=== PATIENT | female | born 1960 | race Caucasian/White ===

== ENCOUNTER 2018-07-20 10:51 | Emergency (ER) | payer OTHER ==
[~2018-07-20] VITALS: Ht 152.4 cm; Wt 69.4 kg
[2018-07-20] MEDS ORDERED: LISINOPRIL10 MG PO (11:03)
[2018-07-20] MEDS ORDERED: TRAZODONE HCL100 MG PO (11:03)
[2018-07-20] MEDS ORDERED: FLEXERIL PO (11:04)
[2018-07-20] MEDS ORDERED: GABAPENTIN 100100 MG PO (11:04)
[2018-07-20] MEDS ORDERED: CIPRO500 MG PO (11:05)
[2018-07-20 11:06] LABS: URINE BILIRUBIN NEGATIVE (Negative); URINE BLOOD NEGATIVE (Negative); URINE CLARITY CLEAR; URINE COLOR YELLOW; URINE GLUCOSE-RANDOM* NEGATIVE (Negative); URINE KETONES NEGATIVE (Negative); URINE LEUKOCYTES NEGATIVE (Negative); URINE NITRITE NEGATIVE (Negative); URINE PROTEIN (DIPSTICK) NEGATIVE (Negative); URINE UROBILINOGEN 0.2 E.U./dl (0.2-1.0)
[2018-07-20 13:40] LABS: HEMATOCRIT 38.5 % (37.0-47.0); MCH 34.8 pg (26.0-34.0); MCHC 33.9 g/dL (28.0-37.0); MCV 102.6 fL (80.0-100.0); RBC 3.75 mil/uL (4.20-5.00); RDW 13.2 % (10.5-14.5); WBC 9.2 thou/uL (4.0-11.0)
[2018-07-20 13:50] LABS: CREATININE 2.2 mg/dL (0.6-1.0)
[2018-07-20 13:52] LABS: POTASSIUM 6.2 mmol/L (3.5-5.1)
[2018-07-20 18:36] VITALS: BP 129/70
--- NOTE | 2018-07-21 08:14 | EKG ---
[address] [address] ELECTROCARDIOGRAM REPORT Name: ZHANG SILVA Room #: DEP Pia#: [id number] ������������������ Admission: 07/20/18 ������������������ Attend Phys: Discharge: 07/20/18 ������������������ Date of : 60 Report #: [id number] ����������������������������������������������������������������� [id number] THIS REPORT FOR: //name// [facility] ED Test Date: 2018-07-20 Test Time: 14:08:25 Pat Name: ZHANG SILVA Department: Room: Gender: F Manager Field Services: : 1960 Requested By: Lenora Salinas Order Number: [id number] MD: Adeel De Jesus Measurements Intervals [place] Rate: 90 P: 67 [place]: 172 QRS: 28 QRSD: 84 T: 45 QT: 382 QTc: 468 Interpretive Statements Sinus rhythm No significant abnormality No previous ECG available for comparison Electronically Signed On 07-21-2018 8:13:52 CDT by Adeel De Jesus [email or web address] ��������������������������������������������� <ELECTRONICALLY SIGNED> ���������������������������������������� By: Adeel De Jesus MD, [facility] ��������������������������������������������� 07/21/18 0813 1408 1408 Adeel De Jesus MD, FAC /EPI
--- NOTE | 2018-07-21 09:13 | EKG ---
[address] [place] [address] ELECTROCARDIOGRAM REPORT Name: ZHANG SILVA Room #: DEP Pia#: [id number] ������������������ Admission: 07/20/18 ������������������ Attend Phys: Discharge: 07/20/18 ������������������ Date of : 60 Report #: [id number] ����������������������������������������������������������������� [id number] THIS REPORT FOR: //name// [facility] ED Test Date: 2018-07-20 Test Time: 15:23:54 Pat Name: ZHANG SILVA Department: Room: Gender: F Svp Monetization: DORA : 1960 Requested By: Evan Cavazos Order Number: [id number] MD: Adeel De Jesus Measurements Intervals [place] Rate: 82 P: 69 [place]: 173 QRS: 24 QRSD: 80 T: 43 QT: 396 QTc: 463 Interpretive Statements Sinus rhythm Nonspecific T wave abnormality No previous ECG available for comparison Electronically Signed On 07-21-2018 9:13:19 CDT by Adeel De Jesus [email or web address] ��������������������������������������������� <ELECTRONICALLY SIGNED> ���������������������������������������� By: Adeel De Jesus MD, [facility] ��������������������������������������������� 07/21/18 0913 1523 1523 Adeel De Jesus MD, FACC /EPI
== END 2018-07-20 18:37 | disposition short-term general hospital (02) ==
LOC: ER 10:51
PROVIDERS: Emergency Medicine
DX: N17.9 Acute kidney failure, unspecified (principal); R33.9 Retention of urine, unspecified; E87.5 Hyperkalemia; F17.210 Nicotine dependence, cigarettes, uncomplicated

== ENCOUNTER 2019-06-10 20:08 | Emergency (ER) | payer OTHER ==
[~2019-06-10] VITALS: Ht 167.6 cm; Wt 72.6 kg
[~2019-06-10 20:08] MED LIST: CIPRO500 MG PO; FLEXERIL PO; GABAPENTIN 100100 MG PO; LISINOPRIL10 MG PO; TRAZODONE HCL100 MG PO
[2019-06-10 20:43] LABS: ABSOLUTE NEUTROPHILS 6.7 thou/uL (1.4-8.2); BASOPHILS 1.3 % (0.0-2.0); EOSINOPHILS 1.2 % (0.0-3.0); HEMATOCRIT 38.2 % (37.0-47.0); LYMPHOCYTES 28.5 % (24.0-44.0); MCH 35.7 pg (26.0-34.0); MCHC 33.9 g/dL (28.0-37.0); MCV 105.2 fL (80.0-100.0); MONOCYTES 7.1 % (1.0-8.0); PLATELET COUNT 173 thou/uL (150-400); POLYS 61.9 % (36.0-66.0); RBC 3.63 mil/uL (4.20-5.00); RDW 13.9 % (10.5-14.5); WBC 11.8 thou/uL (4.0-11.0)
[2019-06-10 20:50] LABS: CALCIUM 8.8 mg/dL (8.5-10.1); CREATININE 1.2 mg/dL (0.6-1.0); POTASSIUM 5.1 mmol/L (3.5-5.1)
[2019-06-10 20:56] LABS: ALBUMIN 3.7 g/dL (3.4-5.0); PROTIME 10.7 Seconds (9.3-11.4); TOTAL BILIRUBIN 0.4 mg/dL (<0.1-1.0); TOTAL PROTEIN 8.1 g/dL (6.4-8.2)
[2019-06-10 21:14] VITALS: BP 105/59
--- NOTE | 2019-06-11 08:36 | EKG ---
[facility] [place] [address] ELECTROCARDIOGRAM REPORT Name: ZHANG SILVA Room #: [facility]P [id number] Admission: 06/10/19 Attend Phys: Discharge: 06/10/19 Date of : 60 Report #: [id number] THIS REPORT FOR: cc: Brittni Esposito Pamela D. DO Lundgren, Craig H. MD [facility] THIS REPORT FOR: //name// [facility] ED Test Date: 2019-06-10 Test Time: 20:51:13 Pat Name: ZHANG SILVA Department: Room: Gender: F Soil Sampler: sandra lopez : 1960 Requested By: Raimundo Michaels Order Number: [id number] MD: Adeel De Jesus Measurements Intervals [place] Rate: 93 P: 53 [place]: 160 QRS: 18 QRSD: 88 T: 33 QT: 377 QTc: 469 Interpretive Statements Sinus rhythm Nonspecific T wave abnormality Compared to ECG 07/20/2018 15:23:54 No significant change was found Electronically Signed On 06-11-2019 8:34:47 CDT by Adeel De Jeuss [email or web address] <ELECTRONICALLY SIGNED> By: Adeel De Jesus MD, FAC 06/11/19 0834 50 50 Adeel De Jesus MD, [facility] /EPI
== END 2019-06-10 21:15 | disposition home or self-care (01) ==
LOC: ER 20:08
PROVIDERS: Emergency Medicine
DX: R11.10 Vomiting, unspecified (principal); F10.920 Alcohol use, unspecified with intoxication, uncomplicated; R05 Cough; R10.9 Unspecified abdominal pain; D18.01 Hemangioma of skin and subcutaneous tissue; F17.210 Nicotine dependence, cigarettes, uncomplicated; Z88.5 Allergy status to narcotic agent; Z88.8 Allergy status to other drugs, medicaments and biological substances

== ENCOUNTER 2020-06-22 17:08 | Inpatient (IN) | payer OTHER ==
[~2020-06-22] VITALS: Ht 167.6 cm; Wt 71.7 kg
[2020-06-22 17:10] VITALS: BP 171/73
[2020-06-22] MEDS ORDERED: ATENOLOL 25 MG25 M1 PO (17:13)
[2020-06-22] MEDS ORDERED: LISINOPRIL20 MG PO (17:13)
[2020-06-22] MEDS ORDERED: GABAPENTIN600 M1 PO (17:14)
[2020-06-22] MEDS ORDERED: TRAMADOL 50 MG50 MG PO (17:14)
[2020-06-22] MEDS ORDERED: TRAZODONE HCL100 MG PO (17:15)
[2020-06-22] MEDS ORDERED: PROZAC20 MG PO (17:15)
[2020-06-22] MEDS ORDERED: TAMSULOSIN HCL0.4 MG PO (17:15)
[2020-06-22] MEDS ORDERED: DICLOFENAC POTA50 MG PO (17:16)
[2020-06-22] MEDS ORDERED: FLEXERIL PO (17:16)
[2020-06-22 18:08] LABS: ABSOLUTE NEUTROPHILS 10.1 thou/uL (1.4-8.2); BASOPHILS 0.7 % (0.0-2.0); EOSINOPHILS 1.1 % (0.0-3.0); HEMATOCRIT 34.1 % (37.0-47.0); HEMOGLOBIN 11.6 gm/dL (12.0-15.0); LYMPHOCYTES 10.5 % (24.0-44.0); MCHC 34.1 g/dL (28.0-37.0); MCV 102.7 fL (80.0-100.0); MONOCYTES 6.6 % (1.0-8.0); PLATELET COUNT 208 thou/uL (150-400); POLYS 81.1 % (36.0-66.0); RBC 3.32 mil/uL (4.20-5.00); RDW 13.5 % (10.5-14.5); WBC 12.5 thou/uL (4.0-11.0)
[2020-06-22 18:16] LABS: CALCIUM 10.5 mg/dL (8.5-10.1); CREATININE 2.9 mg/dL (0.6-1.0); POTASSIUM 4.7 mmol/L (3.5-5.1)
[2020-06-22 18:22] LABS: ALBUMIN 2.9 g/dL (3.4-5.0); TOTAL BILIRUBIN 0.6 mg/dL (0.2-1.0); TOTAL PROTEIN 9.3 g/dL (6.4-8.2)
[2020-06-22 19:43] LABS: URINE BILIRUBIN NEGATIVE (Negative); URINE BLOOD 2+ (Negative); URINE CLARITY CLEAR; URINE COLOR YELLOW; URINE GLUCOSE-RANDOM* NEGATIVE (Negative); URINE KETONES NEGATIVE (Negative); URINE PROTEIN (DIPSTICK) NEGATIVE (Negative); URINE UROBILINOGEN 0.2 E.U./dl (0.2-1.0)
[2020-06-22 19:50] LABS: URINE LEUKOCYTES-REFLEX 2+ (Negative); URINE NITRITE-REFLEX POSITIVE (Negative)
[2020-06-22 20:03] LABS: CASTS None Seen /LPF (None Seen); SQUAMOUS 4-10 Moderate /LPF (0-3); URINE RBC 3-10 Few /HPF (0-2); URINE WBC-REFLEX 6-15 Few /HPF (0-5)
[2020-06-22 20:04] LABS: BACTERIA-REFLEX 1-9 Few /HPF (None Seen); CRYSTALS None Seen /LPF (None Seen)
[2020-06-22 21:58] VITALS: BP 170/73
[2020-06-22 22:14] VITALS: BP 131/60
[2020-06-22 22:47] VITALS: BP 152/82
--- NOTE | 2020-06-23 02:40 | NUR ---
PT admitted to room 457 at 2250. Martins cath patent draining malika urine. Pt initially c/o of pain right shoulder, left hip and bladder. Pain better after Flexiril and Tramadol. Pt alert and oriented, steady gait.
[2020-06-23 04:52] LABS: HEMOGLOBIN 10.7 gm/dL (12.0-15.0); MCH 34.7 pg (26.0-34.0); MCHC 33.6 g/dL (28.0-37.0); MCV 103.1 fL (80.0-100.0); RBC 3.1 mil/uL (4.20-5.00); RDW 13.3 % (10.5-14.5); WBC 8.5 thou/uL (4.0-11.0)
[2020-06-23 05:14] LABS: CALCIUM 9.3 mg/dL (8.5-10.1); CREATININE 2.7 mg/dL (0.6-1.0); POTASSIUM 4.7 mmol/L (3.5-5.1)
[2020-06-23 07:41] VITALS: BP 145/65
[2020-06-23 12:09] VITALS: BP 131/54
--- NOTE | 2020-06-23 13:48 | NUR ---
PT ADMITTED RELATED TO MICHEL, OBSTRUCTIVE UROPATHY, UTI. CM REVIEWED CHART AND SPOKE WITH CARE TEAM. CM MET WITH PT AT BEDSIDE THIS DAY. PT APPEARED TO BE A&O X4. CM ROLE INTRODUCED. PT INDICATED SHE LIVES IN A HOUSE HOUSE WITH HER FIANCE. SHE INICATED 4 STEPS TO ENTER AND 13 STEPS TO BASEMENT. 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 PT IS PATIENT PAY AND HAS BEEN ASSED BY [facility] IN THE PAST AND MAKES TOO MUCH TO QUALIFY FOR MEDICIAD. PT'S PCP IS DR. ROBERT EATON. PT HAS UROLOGY CONSULTED AND IS ON IV ROCEPHIN. CARE TEAM INDICATED THAT PT WILL LIKELY BE HERE OVER THE WEEKEND AND WILL DC HOME WITH A BRADLEY IN PLACE. CM FOLLOWING REGARDING DC PLANNING.
--- NOTE | 2020-06-23 19:17 | NUR ---
PT A&OX4, VSS, PAIN LEFT HIP AND BACK AND RIGHT SHOULDER. PATIENT STATED TRAMADOL DID NOT TOUCH HER PAIN. HYDROCODONE ORDERED AND PATIENT STATED IT MAKES HER ITCH, DOCTOR PAGED. PATIENT WALKS ONE ASSIST TO THE BATHROOM. PATIENT HAS BRADLEY CATH. NEW IV PLACED RIGHT FOREARM. NO SIGNS OF DISTRESS. WILL CONTINUE TO MONITOR.
[2020-06-24 07:12] VITALS: BP 120/64
--- NOTE | 2020-06-24 13:13 | NUR ---
Assumed pt care at 7am.Pt in and out of bed with sba.Assessment completed.vss. Pt c/o back pain radiating to left hip rated 7/10.Percocet tab given with partial relief.Dr Armstrong here,order noted.Pt c/o vaginal bleeding. Message sent to Dr Armstrong.Will be waiting for return call.
[2020-06-24 16:21] VITALS: BP 126/83
[2020-06-25 05:12] LABS: ALBUMIN 2.9 g/dL (3.4-5.0); CALCIUM 9.6 mg/dL (8.5-10.1); CREATININE 2.3 mg/dL (0.6-1.0); PHOSPHORUS 3.3 mg/dL (2.6-4.7); POTASSIUM 4.2 mmol/L (3.5-5.1)
[2020-06-25 09:27] VITALS: BP 156/81
[2020-06-25 16:42] VITALS: BP 164/80
--- NOTE | 2020-06-25 20:17 | NUR ---
Assumed pt care this am, VS stable. Pain is managed with medication, partial relief is noted. Accurate perio pad count ordered. FC in oplace draininmmg yellow urine with some sediments. POC followed with no signs of distress noted, endorsed to the night nurse.
--- NOTE | 2020-06-26 00:55 | NUR ---
ASSESSMENT COMPLETED. PT IS ALERT AND ORIENTED WELL VERY PLEASANT AND COOPEARTIVE. SHE WALKS AROUND IN ROOM WITH STEADY GAIT. BRADLEY TO D/D AND OBSERVED WITH LIGHT YELLOW U/O.AFEBRILE.OXYCODONE GIVEN FOR LLQ PAIN. PT HAS A LFA PIV IN PLACE, SHE DID NOT WANT IV FLUIDS RUNNING TONIGHT,SHE IS DRINKING WATER FINE. AFEBRILE.ROOM AIR WITH NO RESP DISTRESS.
[2020-06-26 06:08] LABS: HEMATOCRIT 34.6 % (37.0-47.0); HEMOGLOBIN 11.4 gm/dL (12.0-15.0); MCHC 33.1 g/dL (28.0-37.0); MCV 102.7 fL (80.0-100.0); RBC 3.37 mil/uL (4.20-5.00); RDW 13.2 % (10.5-14.5); WBC 15.5 thou/uL (4.0-11.0)
[2020-06-26 06:52] LABS: CALCIUM 9.2 mg/dL (8.5-10.1); CREATININE 1.9 mg/dL (0.6-1.0); PHOSPHORUS 3.7 mg/dL (2.5-4.9)
[2020-06-26 08:04] VITALS: BP 157/83
[2020-06-26] MEDS ORDERED: PERCOCET PO (09:50)
[2020-06-26] MEDS ORDERED: CEFUROXIME500 MG PO (09:50)
[2020-06-26 10:48] VITALS: BP 157/83
--- NOTE | 2020-06-26 11:37 | NUR ---
CARE TEAM INDICATED THAT PT IS MEDICALLY STABLE TO DC HOME THIS DAY TO SELF CARE. PT IS TO DC HOME WITH BRADLEY IN PLACE AND TO FOLLOW UP ON OP BASIS WITH UROLOGY. NO OTHER CM INTERVENTION INDICATED. CASE CLOSED.
--- NOTE | 2020-06-26 13:28 | NUR ---
Assumed pt care this am, VS stable. FC in place draining light yellow urine. No vaginal bleeding was noted.Steady on her feet and is able to ambulate in her rooom (standby assists). IV satrted leaking, IV removed. Seen by urology, den to sammy from their end to follow up with them 1 to 2 weeks and to keep FC in, bag replaced with a leg bag. Seen by , SAMMY instructions and prescriptions givne to the pt. Pt is now dc.
== END 2020-06-26 12:45 | disposition home or self-care (01) | DRG 690 ==
LOC: ER 17:08 → EROBS 21:29 → 4W 22:39
PROVIDERS: Nurse Practitioner Family; ADMIT Hospitalist; ATTEND Hospitalist
DX: N13.6 Pyonephrosis (principal); N17.9 Acute kidney failure, unspecified; M54.30 Sciatica, unspecified side; F32.9 Major depressive disorder, single episode, unspecified; F17.200 Nicotine dependence, unspecified, uncomplicated; F10.10 Alcohol abuse, uncomplicated; M25.552 Pain in left hip; I12.9 Hypertensive chronic kidney disease with stage 1 through stage 4 chronic kidney disease, or unspecified chronic kidney disease; N18.9 Chronic kidney disease, unspecified; N93.9 Abnormal uterine and vaginal bleeding, unspecified; B95.7 Other staphylococcus as the cause of diseases classified elsewhere; Z88.5 Allergy status to narcotic agent; Z88.8 Allergy status to other drugs, medicaments and biological substances
CPT/HCPCS: 10045; 10047

== ENCOUNTER 2020-06-27 22:26 | Inpatient (IN) | payer OTHER ==
[~2020-06-27] VITALS: Ht 167.6 cm; Wt 70.3 kg
[2020-06-27 22:26] VITALS: BP 93/42
[~2020-06-27 22:26] MED LIST changes: +ATENOLOL 25 MG25 M1 PO; +CEFUROXIME500 MG PO; +DICLOFENAC POTA50 MG PO; +GABAPENTIN600 M1 PO; +LISINOPRIL20 MG PO; +PERCOCET PO; +PROZAC20 MG PO; +TAMSULOSIN HCL0.4 MG PO; +TRAMADOL 50 MG50 MG PO
[2020-06-27 23:30] LABS: HEMATOCRIT 35.1 % (37.0-47.0); HEMOGLOBIN 11.7 gm/dL (12.0-15.0); MCH 34.3 pg (26.0-34.0); MCHC 33.4 g/dL (28.0-37.0); MCV 102.6 fL (80.0-100.0); PLATELET COUNT 241 thou/uL (150-400); RBC 3.42 mil/uL (4.20-5.00); RDW 13.2 % (10.5-14.5); WBC 17.1 thou/uL (4.0-11.0)
[2020-06-27 23:33] LABS: ANION GAP 13 mmol/L (7-16); BUN 68 mg/dL (7-18); CALCIUM 8.2 mg/dL (8.5-10.1); CHLORIDE 100 mmol/L (98-107); CO2 20 mmol/L (21-32); CREATININE 2.7 mg/dL (0.6-1.0); GLUCOSE 126 mg/dL (74-106); POTASSIUM 4.2 mmol/L (3.5-5.1); SODIUM 133 mmol/L (136-145)
[2020-06-27 23:40] VITALS: BP 109/66
[2020-06-27 23:43] LABS: ALBUMIN 2.8 g/dL (3.4-5.0); MAGNESIUM 1.9 mg/dL (1.8-2.4); SGOT 121 U/L (15-37); SGPT 134 U/L (30-65); TOTAL BILIRUBIN 0.5 mg/dL (0.2-1.0); TOTAL PROTEIN 8.1 g/dL (6.4-8.2); TROPONIN-I <0.06 ng/mL (<0.06)
[2020-06-28 00:17] LABS: MACROCYTES 1+
[2020-06-28 00:18] LABS: ANISOCYTOSIS 1+; PLATELET ESTIMATE NORMAL; POIKILOCYTOSIS 1+
[2020-06-28 01:06] LABS: URINE BILIRUBIN NEGATIVE (Negative); URINE BLOOD 3+ (Negative); URINE CLARITY CLOUDY; URINE COLOR YELLOW; URINE GLUCOSE-RANDOM* NEGATIVE (Negative); URINE KETONES TRACE (Negative); URINE NITRITE-REFLEX NEGATIVE (Negative); URINE PROTEIN (DIPSTICK) 1+ (Negative); URINE UROBILINOGEN 0.2 E.U./dl (0.2-1.0)
[2020-06-28 01:12] LABS: URINE LEUKOCYTES-REFLEX 3+ (Negative)
[2020-06-28 01:33] LABS: CASTS None Seen /LPF (None Seen); CRYSTALS None Seen /LPF (None Seen); MUCUS 0-3 Light strn/LPF (None Seen); SQUAMOUS 0-3 Few /LPF (0-3); URINE RBC >20 Many /HPF (0-2); URINE WBC-REFLEX >25 Many /HPF (0-5); WBC CLUMPS Few (None Seen)
[2020-06-28 01:34] LABS: YEAST-REFLEX Present (None Seen)
[2020-06-28 16:04] VITALS: BP 127/58
[2020-06-28 16:16] LABS: AMP/METHAMP Negative (Negative); BARBITURATES Negative (Negative); BENZODIAZEPINES Negative (Negative); COCAINE Negative (Negative); METHADONE Negative (Negative); OPIATES Negative (Negative); PCP Negative (Negative)
[2020-06-28 16:39] VITALS: BP 127/62
[2020-06-28 17:18] VITALS: BP 133/67
--- NOTE | 2020-06-28 18:39 | NUR ---
ASSUMED PT CARE UPON ADMISSION TO UNIT AT 1730. ADMISSION HISTORY AND EDUCATION COMPLETED. TO ENDORSE REST OF ADMISSION TO LABOR EXPEDITER NURSE. PATIENT A&OX4, HAS A BRADLEY CATHETER. INSTRUCTED ON HOW TO USE CALL LIGHT. ABLE TO MAKE NEEDS KNOWN. GAVE MEDS FOR PAIN ON EMAR. ON ROOM AIR. FALL PRECAUTIONS IN PLACE.
[2020-06-28 21:00] VITALS: BP 132/68
[2020-06-29] MEDS ORDERED: TRAMADOL 50 MG50 MG PO (00:25)
--- NOTE | 2020-06-29 04:30 | NUR ---
Admission assessments completed and careplan initiated. IVFluids infusing, good urine output. Afebrile. High fall risks, fall precautions in place. Calls out appropriately for needs. Up to BSC x 1 assist. Left Sciatica pain unrelieved with Tylenol. Orders received for Tramadol that offered better pain relief.
[2020-06-29 05:45] LABS: ABSOLUTE NEUTROPHILS 5.6 thou/uL (1.4-8.2); BASOPHILS 0.8 % (0.0-2.0); EOSINOPHILS 1.4 % (0.0-3.0); HEMATOCRIT 34.1 % (37.0-47.0); HEMOGLOBIN 11.4 gm/dL (12.0-15.0); LYMPHOCYTES 24.2 % (24.0-44.0); MCH 34.3 pg (26.0-34.0); MCHC 33.5 g/dL (28.0-37.0); MCV 102.3 fL (80.0-100.0); MONOCYTES 8.2 % (1.0-8.0); PLATELET COUNT 174 thou/uL (150-400); POLYS 65.4 % (36.0-66.0); RBC 3.34 mil/uL (4.20-5.00); WBC 8.6 thou/uL (4.0-11.0)
[2020-06-29 06:23] LABS: CALCIUM 7.6 mg/dL (8.5-10.1); CREATININE 1.5 mg/dL (0.6-1.0); MAGNESIUM 1.7 mg/dL (1.8-2.4); POTASSIUM 4.4 mmol/L (3.5-5.1)
[2020-06-29 08:00] VITALS: BP 137/57
--- NOTE | 2020-06-29 11:54 | NUR ---
ASSUMED PT CARE THIS AM. PT VSS, A&OX4. PATIENT ABLE TO MAKE NEEDS KNOWN WITH CALL LIGHT. BRADLEY CATHETER IN PLACE DRAINING WELL. PATIENT REPORTS NERVE PAIN WITH MOVEMENT. ON ROOM AIR. IV PATENT, FLUIDS INFUSING. TOOK MEDS WELL WITHOUT COMPLAINT. UP WITH ASSIST TO AMBUALTE. FALL PRECAUTIONS IN PLACE.
--- NOTE | 2020-06-29 11:55 | NUR ---
PT ADMITTED RELATED TO WEAKNESS AND UTI. CM REVIEWED CHART AND SPOKE WITH CARE TEAM. PT HAD DISCHARGED HOME FROM THIS FACILITY MON 06/26/20 WIHT A BR[address]LEY IN PLACE TO DO OP UROLOGY FOLLOW UP. CM MET WITH PT AT BEDSIDE THIS DAY. PT APPEARED TO BE A&O X4. CM ROLE INTRODUCED. PT INDICATED SHE LIVES IN A HOUSE HOUSE WITH HER FIANCE. SHE INICATED 4 STEPS TO ENTER AND 13 STEPS TO BASEMENT. 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 CHART INDICATES THAT SINCE LAST DC SHE HAD BEEN UNABLE TO WALK AND HAD FALLEN TWICE. 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 PT IS PATIENT PAY AND HAS BEEN ASSED BY [facility] IN THE PAST AND MAKES TOO MUCH TO QUALIFY FOR MEDICIAD. PT'S PCP IS DR. ROBERT EATON. PT HAS UROLOGY AND ID CONSULTED. CM FOLLOWING REGARDING DC PLANNING.
[2020-06-29] MEDS ORDERED: LEVOFLOXACIN250 MG PO (13:04)
[2020-06-29 13:25] LABS: ALBUMIN 2.6 g/dL (3.4-5.0); DIRECT BILIRUBIN 0.1 mg/dL (<0.1-0.2); TOTAL BILIRUBIN 0.5 mg/dL (0.2-1.0); TOTAL PROTEIN 7.5 g/dL (6.4-8.2)
[2020-06-29 16:45] VITALS: BP 146/73
[2020-06-29] MEDS ORDERED: DIFLUCAN100 MG PO (17:45)
[2020-06-29 18:18] VITALS: BP 146/73
== END 2020-06-29 19:01 | disposition home or self-care (01) | DRG 871 ==
LOC: ER 22:26 → EROBS 06-28 03:00 → 4W 06-28 16:50
PROVIDERS: Emergency Medicine; Nurse Practitioner; ADMIT Hospitalist; ATTEND Hospitalist
DX: A41.9 Sepsis, unspecified organism (principal); N17.0 Acute kidney failure with tubular necrosis; E87.1 Hypo-osmolality and hyponatremia; E87.2 Acidosis; F32.9 Major depressive disorder, single episode, unspecified; E86.0 Dehydration; N18.9 Chronic kidney disease, unspecified; I12.9 Hypertensive chronic kidney disease with stage 1 through stage 4 chronic kidney disease, or unspecified chronic kidney disease; F17.210 Nicotine dependence, cigarettes, uncomplicated; M54.30 Sciatica, unspecified side; Z66 Do not resuscitate; R33.8 Other retention of urine; Z88.6 Allergy status to analgesic agent; Z88.8 Allergy status to other drugs, medicaments and biological substances; T83.511D Infection and inflammatory reaction due to indwelling urethral catheter, subsequent encounter; Y83.8 Other surgical procedures as the cause of abnormal reaction of the patient, or of later complication, without mention of misadventure at the time of the procedure; Y92.89 Other specified places as the place of occurrence of the external cause
CPT/HCPCS: 10040

== ENCOUNTER 2020-12-12 07:31 | Inpatient (IN) | payer OTHER ==
[~2020-12-12] VITALS: Ht 167.6 cm; Wt 75.7 kg
[~2020-12-12 07:31] MED LIST changes: +DIFLUCAN100 MG PO; +LEVOFLOXACIN250 MG PO
[2020-12-12 07:34] VITALS: BP 106/45
[2020-12-12] MEDS ORDERED: FISH OIL 1,0001 EAC9 PO (08:35)
[2020-12-12] MEDS ORDERED: TUMERIC (08:35)
[2020-12-12] MEDS ORDERED: CALCIUM500 MG PO (08:36)
[2020-12-12 08:43] LABS: HEMATOCRIT 27.3 % (37.0-47.0); HEMOGLOBIN 8.8 gm/dL (12.0-15.0); MCH 34.2 pg (26.0-34.0); MCHC 32.1 g/dL (28.0-37.0); MCV 106.4 fL (80.0-100.0); PLATELET COUNT 134 thou/uL (150-400); RBC 2.57 mil/uL (4.20-5.00); RDW 15.6 % (10.5-14.5); WBC 28.8 thou/uL (4.0-11.0)
[2020-12-12 08:56] LABS: URINE BILIRUBIN NEGATIVE (Negative); URINE BLOOD TRACE (Negative); URINE CLARITY CLEAR; URINE COLOR YELLOW; URINE GLUCOSE-RANDOM* NEGATIVE (Negative); URINE KETONES NEGATIVE (Negative); URINE PROTEIN (DIPSTICK) NEGATIVE (Negative); URINE UROBILINOGEN 0.2 E.U./dl (0.2-1.0)
[2020-12-12 08:58] LABS: URINE LEUKOCYTES-REFLEX 2+ (Negative); URINE NITRITE-REFLEX POSITIVE (Negative)
[2020-12-12 08:58] LABS: CREATININE 2.1 mg/dL (0.6-1.0); POTASSIUM 5.9 mmol/L (3.5-5.1)
[2020-12-12 09:04] LABS: CALCIUM 8.6 mg/dL (8.5-10.1)
[2020-12-12 09:08] LABS: AMORPHOUS URATES Moderate /LPF (None Seen); CASTS None Seen /LPF (None Seen); SQUAMOUS 4-10 Moderate /LPF (0-3); URINE RBC 1-2 Rare /HPF (NONE SEEN)
[2020-12-12 10:25] LABS: ABSOLUTE NEUTROPHILS 23.9 thou/uL (1.4-8.2); METAMYELOCYTES 1 %; PLATELET ESTIMATE NORMAL
[2020-12-12 13:31] VITALS: BP 120/55
[2020-12-12 14:09] VITALS: BP 127/51
[2020-12-12 14:15] VITALS: BP 134/67
[2020-12-12] MEDS ORDERED: PROAIR HFA8.5 GM INH (15:41)
[2020-12-12] MEDS ORDERED: DICLOFENAC POTA50 MG PO (15:43)
--- NOTE | 2020-12-12 15:54 | EKG ---
[address] [place] [address] ELECTROCARDIOGRAM REPORT Name: ZHANG SILVA Room #: 358-P ADM IN M.R.#: [id number] Admission: 12/12/20 Attend Phys: Fabienne Her MD Discharge: Date of : 60 Report #: [id number] [facility] ED Test Date: 2020-12-12 Test Time: 08:00:46 Pat Name: ZHANG SILVA Department: Room: 358 Gender: F Hardness Tester: Curt COVARRUBIAS : 1960 Requested By: Tono Salazar Order Number: [id number] MD: Kong Johnston Measurements Intervals [place] Rate: 69 P: 51 [place]: 167 QRS: 17 QRSD: 85 T: 8 QT: 438 QTc: 470 Interpretive Statements Sinus rhythm Nonspecific T abnormalities, diffuse leads Compared to ECG 06/10/2019 20:51:13 No significant changes Electronically Signed On 12-12-2020 15:54:31 CDT by Kong Johnston [email or web address] <ELECTRONICALLY SIGNED> By: Kong Johnston MD, [facility] 12/12/20 1554 0800 9 Kong Johnston MD, FACC /EPI
[2020-12-12 16:27] LABS: % SATURATION 3 % (20-39); IRON 13 ug/dL (50-170); TIBC 441 ug/dL (250-450)
[2020-12-12 16:32] LABS: FOLIC ACID 2.9 ng/mL (8.6-58.9)
--- NOTE | 2020-12-12 18:18 | NUR ---
ADMIT: PT ARRIVED TO UNIT, A&OX4, AMBULATE STEADY. PT HAS BRADLEY IN PLACE, NEW BAG PROVIDED. SCD IN PLACE. HEATING PAD DELIVERED PER PT REQUEST. PT STATES SHE IS NOT CURRENTLY IN PAIN, BUT WILL BE IF HER MEDICATIONS ARE NOT GIVEN TONIGHT OR TOMORROW MORNING. MEDS RECONCILLED. SUPPOSITORY ADMINISTERED, STOOL COLLECTED FOR OCCULT BLOOD. NO OTHER QUESTIONS OR CONCERNS AT THIS TIME.
[2020-12-12 19:41] VITALS: BP 150/56
[2020-12-13] VITALS (7 sets, daily range): BP systolic 113–183; BP diastolic 56–92
[2020-12-13 05:40] LABS: HEMATOCRIT 24.1 % (37.0-47.0); HEMOGLOBIN 7.9 gm/dL (12.0-15.0); MCH 34.2 pg (26.0-34.0); MCHC 32.6 g/dL (28.0-37.0); MCV 104.8 fL (80.0-100.0); PLATELET COUNT 125 thou/uL (150-400); RDW 15.5 % (10.5-14.5); WBC 21.1 thou/uL (4.0-11.0)
[2020-12-13 06:13] LABS: ALBUMIN 2.5 g/dL (3.4-5.0); CALCIUM 8.2 mg/dL (8.5-10.1); CREATININE 1.8 mg/dL (0.6-1.0); MAGNESIUM 1.9 mg/dL (1.8-2.4); TOTAL BILIRUBIN 0.5 mg/dL (0.2-1.0)
[2020-12-13 06:31] LABS: POTASSIUM 5.2 mmol/L (3.5-5.1)
[2020-12-13 11:49] LABS: ABSOLUTE NEUTROPHILS 20.7 thou/uL (1.4-8.2); MACROCYTES 1+
[2020-12-13 13:16] LABS: % SATURATION 3 % (20-39); IRON 13 ug/dL (50-170); TIBC 374 ug/dL (250-450)
[2020-12-13 13:32] LABS: ABSOLUTE RETIC COUNT 0.0554 10^6/uL; OBSERVED RETIC COUNT 2.4 % (0.6-2.6)
[2020-12-13 13:43] LABS: FOLIC ACID 2.3 ng/mL (8.6-58.9)
--- NOTE | 2020-12-13 18:36 | NUR ---
RN ASSUMED PT'S CARE AT 0700AM, PT IS A&OX4, PT IS CONTINUING IV ABX AND IV FLUID, PT'S R SIDE FACIAL CELLULITIS AND PAIN HAVE IMPROVED, PT'S BRADLEY CATHETER HAS CHANGED ( 14FR, 10ML ,COUDE CATH ) TODAY PER ORDER, NEW BRADLEY CATHETER IS WORKING WELL , NO BLOOD IN URINE, PT HAS GI CONSULT DUE TO PT HAS BLOOD STOOL AT HOME, AND LOW HGB, PT IS GOING TO HAVE EGD AND COLONOSCOPY TOMORROW, PT HAS SIGNED CONSENT AND PT STARTS TAKING MEDICATION FOR COLONOSCOPY AT 1730PM, RN WILL NPO AFTER MN.
[2020-12-14 03:25] VITALS: BP 178/84
--- NOTE | 2020-12-14 06:29 | NUR ---
PT PROGRESSING SLOWLY TOWARDS D/C GOALS. SHE HAS BEEN MPO AFTER MN FOR EGD AND COLONOSCOPY. HER STOOL IS LIGHT BROWN YELLOW LIQUID STOOL. BRADLEY HAD LG AMTS CLEAR YELLOW URINE. BP MODERATELY ELEVATED. HYDRALAZINE GIVEN ORDERED. BP DOWN TO WNL . PT C/O ARTHRITIC PAIN. NOTIFIED DRYWALL HANGER FRAMER . HELD TYLENOL AND FLEXORIL ORDERED FOR PROCEDURES. ENCOURAGED PT TO REPOSITION. BED DOWN CALL LIGHT IN REACH.
[2020-12-14 07:07] VITALS: BP 176/87
[2020-12-14 11:19] VITALS: BP 183/99
[2020-12-14 15:48] VITALS: BP 183/81
--- NOTE | 2020-12-14 16:02 | NUR ---
INITIAL ASSESSMENT: Received consult. SW reviewed chart and spoke with nursing and attending physician. Pt was admitted from home due to facial cellulitis. Pt is on IV abx and IV steroids. GI consulted due to anemia/melena. Pt to have EGD/colonoscopy today. Pt off the unit during SW visit. Per chart, pt is alert/orientated x 4. Pt lives at home. Pt with hx urinary retention and has a escamilla catheter. Pt does not have health insurance. [facility] to screen pt and assist with Medicaid application if appropriate. Pt to stay in the hospital for IV abx. SW is following to assist as needed with discharge planning.
[2020-12-14 16:07] LABS: HEMATOCRIT 26.8 % (37.0-47.0); HEMOGLOBIN 8.6 gm/dL (12.0-15.0); MCH 33.5 pg (26.0-34.0); MCHC 32.2 g/dL (28.0-37.0); MCV 103.9 fL (80.0-100.0); RBC 2.58 mil/uL (4.20-5.00); RDW 15.8 % (10.5-14.5); WBC 15.2 thou/uL (4.0-11.0)
[2020-12-14 16:19] LABS: CALCIUM 8.4 mg/dL (8.5-10.1); CREATININE 1.4 mg/dL (0.6-1.0)
--- NOTE | 2020-12-14 18:13 | NUR ---
ASSUMED PATIENT CARE AT 0700. A/O X4. TOLERATED EGD AND COLONOSCOPY. ELEVATED BP. RIGHT LOWER FACE HAS DRAINAGE, ABD APPLIED. VSS. AFEBRILE. SLOWLY TWARDS POC GOALS.
[2020-12-14 19:30] VITALS: BP 148/80
--- NOTE | 2020-12-15 04:12 | NUR ---
PROGRESS PT A/O X4.LUNGS CLEAR ON ROOM AIR. BRADLEY CATH IN PLACE DRAING YELLOW CLOUDY URINE. IV TO LF INFUSING NS @100CC'S/HR. DENIES PAIN. ANTIBIOTICS ADMINISTERED ORDERED. PT STATED SHE WANTS TO DC HOME ON ORAL ANTIBIOTICS TOMORROW SHE HAS NO INSURANCE AND IS CONCERNED ABOUT HER BILL. CHIN DRAINAGE WAS CULTURED BY DR. ROONEY AND BROUGHT TO LAB GAUZE DRESSING APPLIED. CONTINUE POC.
[2020-12-15 04:30] VITALS: BP 140/77
[2020-12-15 05:55] LABS: HEMATOCRIT 26.5 % (37.0-47.0); HEMOGLOBIN 8.8 gm/dL (12.0-15.0); MCH 34.2 pg (26.0-34.0); MCHC 33.1 g/dL (28.0-37.0); MCV 103.3 fL (80.0-100.0); PLATELET COUNT 166 thou/uL (150-400); RBC 2.57 mil/uL (4.20-5.00); RDW 15.3 % (10.5-14.5); WBC 11.7 thou/uL (4.0-11.0)
[2020-12-15 06:38] LABS: ALBUMIN 2.6 g/dL (3.4-5.0); CALCIUM 8.1 mg/dL (8.5-10.1); CREATININE 1.4 mg/dL (0.6-1.0); POTASSIUM 3.9 mmol/L (3.5-5.1); TOTAL BILIRUBIN 0.6 mg/dL (0.2-1.0); TOTAL PROTEIN 7.2 g/dL (6.4-8.2)
[2020-12-15 07:40] VITALS: BP 166/86
[2020-12-15 11:11] LABS: ABSOLUTE NEUTROPHILS 9.7 thou/uL (1.4-8.2); METAMYELOCYTES 2 %
[2020-12-15 11:12] LABS: ANISOCYTOSIS 1+
[2020-12-15 11:31] VITALS: BP 136/68
--- NOTE | 2020-12-15 15:05 | NUR ---
PT IS ALERT AND ORIENTED X4. SA ON THE MONITOR. PT IS ON ROOM AIR. PT HAD EPISODE THIS AM WHEN GETTING OUT OF BED AND FELT LIGHTHEADED AND DIZZY. BLOOD PRESSURE WAS STABLE. BP WAS ELEVATED THIS AM AND PRN HYDRALAZINE GIVEN FOR BP. DR. RUSH STARTED PT ON NORVASC. CHANGED DRESSING TO CHIN ABSCESS. DR. ROONEY AT BEDSIDE AND WANTING ENT TO LOOK AT THE ABSCESS THERE IS DRAINAGE IN HER MOUTH. PAGED ENT. SPOKE WITH DR. BANEGAS AND WILL ADDRESS ABSCESS. PT GIVEN PRN ATIVAN FOR ANXIETY PER REQUEST. NO COMPLAINTS OF PAIN OR DISCOMFORT AT THIS TIME. WILL CONTINUE TO MONITOR.
--- NOTE | 2020-12-15 15:39 | NUR ---
SW reviewed chart and spoke with nursing and attending physician. Pt remains on IV abx. Pt had EGD and colonoscopy yesterday. ENT to see pt for possible I&D of facial cellulitis. Awaiting cultures for recommendation for abx at time of discharge. YOBANY met with pt at bedside. Introduced role of SW. Pt is alert/orientated x 4. Pt reports she lives at home with her fiance. Prior to admission, pt was independent with ADLs. No use of DME. Pt's PCP is Dr. Brittni Esposito in [place]. 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 Pt does not have health insurance. Pt states she is over assets to qualify for Medicaid. Discharge home is anticipated for tomorrow. Pt denies having any discharge needs. SW is following and available to assist should needs arise.
[2020-12-15 15:43] VITALS: BP 151/81
[2020-12-15 19:30] VITALS: BP 156/71
[2020-12-16 04:00] VITALS: BP 169/82
[2020-12-16 04:33] LABS: HEMATOCRIT 27.4 % (37.0-47.0); HEMOGLOBIN 9.2 gm/dL (12.0-15.0); MCH 34.6 pg (26.0-34.0); MCHC 33.4 g/dL (28.0-37.0); MCV 103.5 fL (80.0-100.0); RBC 2.64 mil/uL (4.20-5.00); WBC 8.8 thou/uL (4.0-11.0)
--- NOTE | 2020-12-16 06:30 | NUR ---
BRADLEY IN PLACE TO DD. POC WITH IVPB ANTIBIOTICS GIVEN. VANCO TROUGH THIS AFTERNOON DUE. ANAEROBIC SWAB CULTURE TAKEN TO LAB. PREVIOUS SWAB WAS INCORRECT SWAB SUBMITTED FOR CULTURE WAS FOR MRSA. VSS OVERNIGHT.
[2020-12-16 07:12] VITALS: BP 119/56
[2020-12-16 15:24] VITALS: BP 107/53
--- NOTE | 2020-12-16 15:56 | NUR ---
PT IS ALERT AND ORIENTED X4. CURRENTLY ROOM AIR. CHANGED DRESSING TO CHIN ABSCESS X2 THIS SHIFT. PURULENT DRAINAGE. PER DR. ROONYE, MILK ABSCESS TO CLEAN DRAINAGE FROM INSIDE LIP WITH SWAB AND MOUTH WASH, AND CHIN WITH SALINE. MILKED MODERATE AMOUNT OF PURULENT DRAINAGE FROM ABSCESS. DR. ROONEY ADDRESS CRITICAL VANC LEVEL. STOPPED VANCOMYCIN AFTER 130ML ADMINISTERED. PT WAS DOING EXERCISES ON THE SIDE OF THE BED AND STARTED TO HAVE SOME PAIN ON HER LEFT SIDE. GAVE PRN TYLENOL AND PAIN WAS RELIEVED. NO OTHER PAIN OR DISCOMFORT AT THIS TIME. WILL CONTINUE TO MONITOR.
[2020-12-16 20:05] VITALS: BP 133/64
--- NOTE | 2020-12-16 23:25 | NUR ---
PT ALERT AND ORIENTED X4. VSS AFEBRILE. C/O BACK AND LEFTHIP PAIN. MEDICATED WITH 2 TYLENOL. ATIVAN GIVEN FOR ANXIETY. TRAZADONE FOR SLEEP. WOUND CARE COMPLETED ORDERED. MODERATE AMTS OF PURULENT DRAINAGE NOTED FROM ORAL AND FACIAL CHIN WOUND. ABX OINTMENT APPLIED ORDERED. BED DOWN. CALL LIGHT IN REACH. NO S/S RESPIRATORY DISTRESS. 99% SAT ON RA.
[2020-12-17 04:30] VITALS: BP 119/58
--- NOTE | 2020-12-17 07:33 | NUR ---
PT PROGRESSING SLOWLY TOWARDS D/C GOALS. VSS AFEBRILE. DRAINED WOUNDS ORDERED. DRAINAGE IS STILL PURULENT IN MOD AMTS. ABX OINTMENT APPLIED ORDERED. PT SLEPT MOST OF NIGHT. NO S/S DISTRESS ON RA.
--- NOTE | 2020-12-17 07:46 | NUR ---
PT RESTNG QUIETLY THIA AM. PROGRESSING TOWARDS D/C GOALS. VSS AFEBRILE. DRAINING WOUNDS ORDERED. ABX OINTMENT APPLIED ORDERED.
[2020-12-17] MEDS ORDERED: LINEZOLID600 MG PO (10:52)
[2020-12-17] MEDS ORDERED: NORVASC5 MG PO (10:53)
[2020-12-17] MEDS ORDERED: PROZAC20 MG PO (10:54)
[2020-12-17] MEDS ORDERED: MUPIROCIN22 GM TOP (10:55)
[2020-12-17] MEDS ORDERED: FOLIC ACID1 MG PO (10:55)
[2020-12-17 11:50] VITALS: BP 142/65
--- NOTE | 2020-12-17 12:25 | NUR ---
PT IS ALERT AND ORIENTED X4. PT DISCHARGING PHONE WITH FIANCE DRIVING. PT VERIFIED THAT ANTIBIOTIC IS AFFORDABLE WITH GOOD RX CODE. EDUCATED PT REGARDING HOW TO MILK ABSCESS AND TREATMENT. PT VERBALIZED UNDERSTANDING OF DISCHARGE INSTRUCTIONS AND FOLLOW UP. PT LEFT IN WHEELCHAIR VIA NURSING STAFF.
--- NOTE | 2020-12-20 10:08 | PATH ---
[facility] [address] [place] [address] PATHOLOGY RPT PROCEDURE Name: LUIS ANGEL SILVA Room #: 358-P DIS IN M.R.#: [id number] Admission: 12/12/20 Date of : 60 Discharge: 12/17/20 Report #: [id number] Path Case #: [id number] LCA Accession Number: [id number] . 01 Material submitted: . PART A: gastrointestinal site - RANDOM GASTRIC BIOPSY R/O H. PYLORI PART B: colon - DESCENDING COLON POLYP. Modifiers: descending . 01 Clinical history: . ESOPHAGOGASTRODUODENOSCOPY/COLONOSCOPY MELENA, ANEMIA, COLON POLYPS, GASTRITIS SEPSIS, UTI, FACIAL CELLULITIS . 02 Diagnosis: A. Gastric mucosa, random gastric, biopsy: - Focal mild active chronic gastritis. - H. pylori immunohistochemical stain is negative. . B. Colonic mucosa, descending colon polyp, biopsy: - Colonic mucosa with hyperplastic changes. - Negative for dysplasia or malignancy. . (PANTERA:delma; 12/18/2020) [facility] 12/18/2020 1114 Local . 02 Electronically signed: . Dougie Cason DO, Pathologist NPI- [id number] . 01 Gross description: . A. The specimen is received in formalin, labeled "Luis Angel Silva, random gastric biopsy". Received are 3 segments of pale joseph tissue ranging in size from 0.4 to 0.5 cm in maximum dimensions. The specimen is submitted entirely in cassette A1. . B. The specimen is received in formalin, labeled "Luis Angel Silva, descending colon polyp". Received is a segment of pale joseph tissue measuring 0.5 cm in maximum dimensions. The specimen is submitted entirely in cassette B1.([facility]; 12/15/2020) [facility] 12/15/2020 1254 Local . 02 Pathologist provided ICD-10: K29.50, K92.1, D64.9 . 02 CPT . 443515, 201555 Specimen Comment: A courtesy copy of this report has been sent to [phone], [place] [address] PATHOLOGY RPT PROCEDURE Name: LUIS ANGEL SILVA Room #: 358-P DIS IN M.R.#: [id number] Admission: 12/12/20 Date of : 60 Discharge: 12/17/20 Report #: [id number] Path Case #: [id number] Specimen Comment: [id number], Specimen Comment: Report sent to , DR EATON / DR RUSH Specimen Comment: A duplicate report has been generated due to demographic updates. Performed at: 01 [facility] [address] [id number] MD Ino Whipple MD Phone: [phone] Performed at: [address] [id number] MD Alberto Ramirez MD Phone: [phone]
== END 2020-12-17 12:15 | disposition home or self-care (01) | DRG 871 ==
LOC: ER 07:31 → EROBS 13:18 → 3W 14:09
PROVIDERS: Nurse Practitioner; Specialist; Student in an Organized Health Care Education/Training Program; ADMIT Hospitalist; ATTEND Hospitalist
PROC: 0DBM8ZZ Excision of Descending Colon, Via Natural or Artificial Opening Endoscopic (ICD-10-PCS; principal; 2020-12-14)
PROC: 0DB68ZX Excision of Stomach, Via Natural or Artificial Opening Endoscopic, Diagnostic (ICD-10-PCS; principal; 2020-12-14)
DX: A41.9 Sepsis, unspecified organism (principal); K29.71 Gastritis, unspecified, with bleeding; K57.31 Diverticulosis of large intestine without perforation or abscess with bleeding; L03.211 Cellulitis of face; N17.9 Acute kidney failure, unspecified; L02.01 Cutaneous abscess of face; F32.9 Major depressive disorder, single episode, unspecified; I12.9 Hypertensive chronic kidney disease with stage 1 through stage 4 chronic kidney disease, or unspecified chronic kidney disease; N18.9 Chronic kidney disease, unspecified; F17.210 Nicotine dependence, cigarettes, uncomplicated; D64.9 Anemia, unspecified; E87.5 Hyperkalemia; M54.30 Sciatica, unspecified side; Z66 Do not resuscitate; E11.22 Type 2 diabetes mellitus with diabetic chronic kidney disease; R33.9 Retention of urine, unspecified; R31.29 Other microscopic hematuria; N30.91 Cystitis, unspecified with hematuria; B96.1 Klebsiella pneumoniae [K. pneumoniae] as the cause of diseases classified elsewhere; F10.10 Alcohol abuse, uncomplicated; Z20.822 Contact with and (suspected) exposure to COVID-19; E53.8 Deficiency of other specified B group vitamins; K44.9 Diaphragmatic hernia without obstruction or gangrene; K63.5 Polyp of colon; K64.8 Other hemorrhoids; Z88.6 Allergy status to analgesic agent; Z88.8 Allergy status to other drugs, medicaments and biological substances; Z28.21 Immunization not carried out because of patient refusal
CPT/HCPCS: 10879; 62110; 62900; 70005

== ENCOUNTER 2021-01-09 13:57 | Inpatient (IN) | payer OTHER ==
[~2021-01-09] VITALS: Ht 167.6 cm; Wt 74.4 kg
[~2021-01-09 13:57] MED LIST changes: +CALCIUM500 MG PO; +FISH OIL 1,0001 EAC9 PO; +FOLIC ACID1 MG PO; +LINEZOLID600 MG PO; +MUPIROCIN22 GM TOP; +NORVASC5 MG PO; +PROAIR HFA8.5 GM INH; +TUMERIC
[2021-01-09 14:39] VITALS: BP 112/27
[2021-01-09 15:08] LABS: URINE BILIRUBIN NEGATIVE (Negative); URINE BLOOD 2+ (Negative); URINE CLARITY SL CLOUDY; URINE COLOR YELLOW; URINE GLUCOSE-RANDOM* NEGATIVE (Negative); URINE KETONES NEGATIVE (Negative); URINE LEUKOCYTES-REFLEX 1+ (Negative); URINE NITRITE-REFLEX NEGATIVE (Negative); URINE PROTEIN (DIPSTICK) NEGATIVE (Negative); URINE UROBILINOGEN 0.2 E.U./dl (0.2-1.0)
[2021-01-09 15:19] LABS: SQUAMOUS 0-3 Few /LPF (0-3); URINE RBC 3-10 Few /HPF (NONE SEEN); URINE WBC-REFLEX 6-15 Few /HPF (0-5)
[2021-01-09 15:20] LABS: AMORPHOUS URATES Moderate /LPF (None Seen); YEAST-REFLEX Present (None Seen)
[2021-01-09 15:39] LABS: ABSOLUTE NEUTROPHILS 12.4 thou/uL (1.4-8.2); BASOPHILS 0.3 % (0.0-2.0); EOSINOPHILS 0.9 % (0.0-3.0); HEMATOCRIT 26.5 % (37.0-47.0); HEMOGLOBIN 8.5 gm/dL (12.0-15.0); LYMPHOCYTES 7.5 % (24.0-44.0); MCH 33.1 pg (26.0-34.0); MCHC 32.2 g/dL (28.0-37.0); MCV 102.6 fL (80.0-100.0); MONOCYTES 7.8 % (1.0-8.0); PLATELET COUNT 262 thou/uL (150-400); POLYS 83.5 % (36.0-66.0); RBC 2.58 mil/uL (4.20-5.00); RDW 16.2 % (10.5-14.5); WBC 14.9 thou/uL (4.0-11.0)
[2021-01-09 16:01] LABS: ANION GAP 14 mmol/L (7-16); BUN 42 mg/dL (7-18); CALCIUM 8.4 mg/dL (8.5-10.1); CHLORIDE 108 mmol/L (98-107); CO2 14 mmol/L (21-32); CREATININE 2.3 mg/dL (0.6-1.0); GLUCOSE 216 mg/dL (74-106); SODIUM 136 mmol/L (136-145)
[2021-01-09 16:06] LABS: POTASSIUM 6.3 mmol/L (3.5-5.1)
[2021-01-09 20:05] VITALS: BP 105/85
[2021-01-09 21:10] VITALS: BP 138/54
--- NOTE | 2021-01-09 22:40 | NUR ---
PT ADMITTED FROM ED. PT REPORTS SINCE LAST FRIDAY FEELING UNSTEADY AND L HAND TREMOR. SHE WENT TO SEE PCP, DR ROONEY AND HE TOLD HER TO GO TO THE ED. PT HAS A CHRONIC BRADLEY. SHE IS BEING ADMITTED WITH A UTI, ELEVATED POTASSIUM THAT PT REPORTS IS RELATED TO A DRUG INTERACTION. PT TOLD ED NURSE THAT SHE WANTED A PULL UP FOR HER BRADLEY DISCHARGE. PT GIVEN KAYEXALATE IN ED, LOOSE STOOL X 3 SINCE MEDICATION PER PT. PALE SKIN TONE. 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 IVF INTACT. PT EDUCATED TO CALL FOR ASSISTANCE. PMH: PIRIFORMIS SYNDROME, CYSTITIS, URINARY RETENTION, DEPRESSION, RENAL FAILURE, PT DENIES PREVIOUSLY REPORTED DM, SMOKER, ETOH USE.
[2021-01-10 03:58] VITALS: BP 118/62
[2021-01-10 04:50] LABS: CREATININE 1.5 mg/dL (0.6-1.0)
[2021-01-10 05:05] LABS: HEMATOCRIT 23.8 % (37.0-47.0); HEMOGLOBIN 7.6 gm/dL (12.0-15.0); MCH 32.6 pg (26.0-34.0); MCHC 32.1 g/dL (28.0-37.0); MCV 101.5 fL (80.0-100.0); RBC 2.34 mil/uL (4.20-5.00); RDW 16.7 % (10.5-14.5); WBC 11.7 thou/uL (4.0-11.0)
[2021-01-10 05:24] LABS: POTASSIUM 4.7 mmol/L (3.5-5.1)
[2021-01-10 07:00] VITALS: BP 123/61
--- NOTE | 2021-01-10 07:13 | EKG ---
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
--- NOTE | 2021-01-10 10:54 | NUR ---
ASSUMED CARE OF PT AT 0700. PT IS SITITNG UP IN CHAIR EATING BREKFAST AT TIME OF ASSESSMENT AND MEIDCATION ADMINISTRATION. PTS RAC IV IS LEAKING AND DISCONTINUED. PT REPORTS RIGHT SIDED SIATIC PAIN DURING ASSESSMENT. PT IS REQUESTING A XANAX TO "HELP WITH THE PAIN". PT DOES NOT HAVE XANAX ORDERED ON EMAR. WILL CONTACT PHYSICIAN FOR ORDERS FOR THAT. PT IS RESING IN BED AT THIS TIME AND IS SR ON THE MONITOR. WILL CONTINUE TO MONITOR.
[2021-01-10 11:30] VITALS: BP 114/58
[2021-01-10 16:00] VITALS: BP 94/54
[2021-01-10 19:36] VITALS: BP 118/59
--- NOTE | 2021-01-10 23:25 | NUR ---
ASSESSMENT COMPLETED. PT IS ALERT AND ORIENTED. BRADLEY IN PLACE-SHE COILS IT ONTO HER BUTTOCKS-DENIES ANY DISCOMFORT.REQUESTED PRN ATIVAN. SO FAR IS CALM AND COOPERATIVE. HAD A SMALL BM IN BSC. BEEN REFUSING BREATHING TX BUT REQUESTED FOR ONE TONIGHT-SOUNDS CONGESTED WITH A NON PRODUCTIVE COUGH. STATES TREMOR TO LEFT HAND IS INTERMITTENT. WILL CALL WITH NEEDS, NO FURTHER CONCERNS.
[2021-01-11 04:37] VITALS: BP 112/51
[2021-01-11 04:51] LABS: CREATININE 1.2 mg/dL (0.6-1.0); POTASSIUM 4.7 mmol/L (3.5-5.1)
[2021-01-11 05:17] LABS: ABSOLUTE RETIC COUNT 0.0765 10^6/uL; OBSERVED RETIC COUNT 3.01 % (0.6-2.6)
[2021-01-11 07:37] LABS: HEMOGLOBIN 7.6 gm/dL (12.0-15.0); MCH 33.1 pg (26.0-34.0); MCHC 31.7 g/dL (28.0-37.0)
[2021-01-11 07:39] LABS: MCV 104.5 fL (80.0-100.0); PLATELET COUNT 221 thou/uL (150-400); RDW 16.8 % (10.5-14.5); WBC 11.8 thou/uL (4.0-11.0)
[2021-01-11 07:46] LABS: DIRECT BILIRUBIN 0.2 mg/dL (<0.1-0.2); TOTAL BILIRUBIN 0.4 mg/dL (0.2-1.0); TOTAL PROTEIN 6.5 g/dL (6.4-8.2)
[2021-01-11 07:56] VITALS: BP 131/60
[2021-01-11 11:42] VITALS: BP 125/54
[2021-01-11 13:14] LABS: ABSOLUTE NEUTROPHILS 9.6 thou/uL (1.4-8.2); ANISOCYTOSIS 1+; MACROCYTES 1+
[2021-01-11 16:23] VITALS: BP 118/65
--- NOTE | 2021-01-11 16:31 | NUR ---
met with patient she has recent hospitalizations at [facility]. 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. She is independent with adls and self care. she lives with her fiance. PCP is Dr santiago Esposito. Patient worked with therapy and worked poorly with therapy. She needed to use a walker. Patient reports she is weak. She has no health insurance. She is over assessed with assets and [place] not qualify [place]. Discussed out of pocket pay for therapy at home. Patient reports she cannot afford. She reports she has spent out of pocket cost for phys apts, infusions for her siatica. She cannot afford the payment. She can obtain a walker at her assisted living facility. [facility] following for dc planning.
[2021-01-11 20:02] VITALS: BP 122/54
--- NOTE | 2021-01-12 02:49 | NUR ---
PT CARE ASSUMED WITH PT IN BED RESTING.PT IS A/O X4.PT IS UP WITH 1X ASSIST. BRADLEY IN PLACE AND DRAINING GOOD.PT ASKED FOR XANAX WITH BEDTIME MEDICATION.PT IS ON ROOM AIR.TAKES MEDS WHOLE WITH NO ISSUES.WILL CONTINUE TO MONITOR
[2021-01-12 03:42] VITALS: BP 130/64
[2021-01-12 07:01] VITALS: BP 134/82
[2021-01-12 07:50] LABS: ALBUMIN 1.9 g/dL (3.4-5.0); CALCIUM 7.9 mg/dL (8.5-10.1); PHOSPHORUS 3.3 mg/dL (2.5-4.9); POTASSIUM 4.5 mmol/L (3.5-5.1)
[2021-01-12 08:47] LABS: HEMATOCRIT 23.9 % (37.0-47.0); MCHC 31.5 g/dL (28.0-37.0); MCV 104.7 fL (80.0-100.0); RBC 2.29 mil/uL (4.20-5.00); RDW 16.7 % (10.5-14.5); WBC 11.3 thou/uL (4.0-11.0)
[2021-01-12 08:51] LABS: HEMOGLOBIN 7.6 gm/dL (12.0-15.0)
[2021-01-12 11:14] VITALS: BP 122/63
[2021-01-12 13:58] VITALS: BP 122/63
--- NOTE | 2021-01-12 14:10 | NUR ---
DC held today due to abd pain/tenderness. CT pending. Resources for followup care at [facility] or [facility] noted in the pt's dc instructions along with ethol support and tx resources.
--- NOTE | 2021-01-12 14:36 | NUR ---
Assumed care of pt this AM. Pt is A&O x4, on RA. C/O RUQ pain that is sharp/stabby. Pt with fever this afternoon, given tylenol w/ resolution. IV infiltrated this shift, paged IV team to start new one. Chr escamilla in place for retention. Contact iso in place for UTI. SR on the monitor. Plan for CT today with possible discharge.
[2021-01-12 15:20] VITALS: BP 129/67
[2021-01-12 19:07] LABS: ANA INTERPRETATION Negative (())
[2021-01-12 19:54] VITALS: BP 119/52
[2021-01-13 05:46] VITALS: BP 117/56
--- NOTE | 2021-01-13 08:44 | NUR ---
SLEPT PART OF SHIFT. HOPING TO GO HOME SOON. NO PRESENT COMPLAINTS. CONTINUE TO ASSES
[2021-01-13 09:37] VITALS: BP 111/38
[2021-01-13 10:32] LABS: HEMATOCRIT 26.9 % (37.0-47.0); HEMOGLOBIN 8.7 gm/dL (12.0-15.0); MCH 33.2 pg (26.0-34.0); MCHC 32.4 g/dL (28.0-37.0); MCV 102.4 fL (80.0-100.0); RBC 2.63 mil/uL (4.20-5.00); RDW 16.8 % (10.5-14.5); WBC 10.9 thou/uL (4.0-11.0)
[2021-01-13 10:46] LABS: INR 1.14; PROTIME 12.3 Seconds (10.5-12.1)
[2021-01-13 10:49] LABS: ALBUMIN 2.2 g/dL (3.4-5.0); CALCIUM 8.2 mg/dL (8.5-10.1); CREATININE 1.3 mg/dL (0.6-1.0); MAGNESIUM 1.5 mg/dL (1.8-2.4); POTASSIUM 4.4 mmol/L (3.5-5.1); TOTAL BILIRUBIN 0.5 mg/dL (0.2-1.0); TOTAL PROTEIN 7.3 g/dL (6.4-8.2)
--- NOTE | 2021-01-13 18:40 | NUR ---
PT PLEASANT THROUGHOUT THE SHIFT. 1 BM TODAY. STOOL SAMPLE SENT TO LAB FOR POSSIBLE C-DIFF, STILL WAITING ON RESULTS. PT COMPLAINED OF ADDITIONAL LOWER ABDOMINAL PAIN THAT WAS PARTIALLY RELIEVED WITH MEDICATION SEE MAR. PT DENIES ANY OTHER COMPLAINTS.
[2021-01-13 20:14] VITALS: BP 129/65
[2021-01-14 04:09] LABS: HEMATOCRIT 24.4 % (37.0-47.0); HEMOGLOBIN 7.9 gm/dL (12.0-15.0); MCH 33.4 pg (26.0-34.0); MCHC 32.5 g/dL (28.0-37.0); MCV 102.9 fL (80.0-100.0); RBC 2.37 mil/uL (4.20-5.00); RDW 16.5 % (10.5-14.5); WBC 7.8 thou/uL (4.0-11.0)
[2021-01-14 04:23] LABS: CALCIUM 7.9 mg/dL (8.5-10.1); CREATININE 1.1 mg/dL (0.6-1.0); MAGNESIUM 1.4 mg/dL (1.8-2.4); POTASSIUM 3.9 mmol/L (3.5-5.1)
[2021-01-14 04:24] VITALS: BP 122/55
--- NOTE | 2021-01-14 08:14 | NUR ---
SLEPT MOST OF SHIFT. PAIN MEDICATION GIVEN PRN FOR PAIN CONTROL WITH RELIEF. NO LOOSE STOOLS THIS SHIFT. WORKING ON GOALS AND PLAN OF CARE FOR NOC. CONTINUE TO ASSES.
[2021-01-14 09:12] VITALS: BP 117/62
[2021-01-14 12:11] VITALS: BP 126/56
[2021-01-14 17:33] VITALS: BP 117/48
--- NOTE | 2021-01-14 17:53 | NUR ---
PT HAS BEEN PLEASANT THROUGHOUT THE SHIFT. HAS ASKED FOR PRN PAIN MEDICATIONS EVERY 4 HOURS FOR LOWER ABDOMINAL PAIN. NO BM TODAY. NO VISITORS TODAY.
[2021-01-14 20:11] VITALS: BP 120/55
[2021-01-15 04:29] LABS: HEMATOCRIT 24.3 % (37.0-47.0); HEMOGLOBIN 7.8 gm/dL (12.0-15.0); MCH 33.3 pg (26.0-34.0); MCHC 32.3 g/dL (28.0-37.0); MCV 103.1 fL (80.0-100.0); RBC 2.35 mil/uL (4.20-5.00); RDW 16.6 % (10.5-14.5); WBC 9.1 thou/uL (4.0-11.0)
[2021-01-15 04:38] LABS: CREATININE 1.1 mg/dL (0.6-1.0); MAGNESIUM 1.7 mg/dL (1.8-2.4); POTASSIUM 3.8 mmol/L (3.5-5.1)
[2021-01-15 04:54] VITALS: BP 144/66
[2021-01-15 08:05] VITALS: BP 117/56
[2021-01-15 08:56] LABS: ALBUMIN 1.9 g/dL (3.4-5.0); DIRECT BILIRUBIN 0.2 mg/dL (<0.1-0.2); TOTAL BILIRUBIN 0.4 mg/dL (0.2-1.0); TOTAL PROTEIN 6.5 g/dL (6.4-8.2)
[2021-01-15 12:05] VITALS: BP 117/55
--- NOTE | 2021-01-15 14:26 | HC ---
[facility] [place] [address] CONSULTATION Name: ZHANG SILVA Room #: 210-P ADM IN M.R.#: [id number] Admission: 01/09/21 Attend Phys: Akbar Ramirez MD Discharge: Date of : 60 Report #: [id number] THIS REPORT FOR: cc: Brittni Esposito Pamela D. DO McElhinney, Christian C. MD ~ cc: Maco Porter MD, Juanito Small MD, Emma Mooney DO DATE OF SERVICE: 01/13/2021 HISTORY OF PRESENT ILLNESS: The patient is a 60-year-old female with a recent history of right buccal abscess, on prolonged course of antibiotics, which has been improving. She is being followed by Dr. Aguilar Porter. She had a hospitalization last month for this. GI was consulted last month for anemia. She also reported dark stools at that time. She therefore underwent an EGD and colonoscopy by Dr. Alejandra my partner on 12/14/2020. Colonoscopy showing a small polyp and removed, diverticulosis, otherwise negative. No evidence of colitis at that time. Upper endoscopy, small hiatal hernia, mild gastritis, biopsies obtained, which were negative. The patient does have a history of chronic alcohol abuse. Liver is enlarged on CT and shows ascites. Upper endoscopy did not show any evidence of varices or portal hypertensive gastropathy. The patient was discharged from hospitalization last month and was readmitted on 01/09/2021, this time with increasing shortness of breath and generalized fatigue. She then began complaining of right lower quadrant abdominal pain. She denies any diarrhea or blood in her stools. She underwent a CT scan of the abdomen and pelvis on 01/12/2021, which shows CT consistent with colitis in the proximal colon extending from the ascending colon to the distal transverse colon without evidence of mass or abscess or bowel obstruction or perforation. Small amount of abdominal pelvic ascites, likely reactive was noted, otherwise was negative. She is having mild abdominal pain, but appears comfortable. Again, denies any diarrhea or blood in her stools. No nausea or vomiting. She is tolerating her diet fairly well at this time. She is actually anxious to go home. PAST MEDICAL HISTORY: History of alcohol abuse, diabetes, recent right buccal MRSA abscess, urinary tract infection, chronic renal insufficiency, history of obstructive uropathy, history of anemia. REVIEW OF SYSTEMS: As per HPI. ALLERGIES: HYDROCODONE, CODEINE, NAPROXEN, TRAMADOL. FAMILY HISTORY: Negative for colon cancer or inflammatory bowel disease. SOCIAL HISTORY: She does smoke daily. She consumes alcohol on a daily basis, 4-[address] [address] CONSULTATION Name: ZHANG SILVA Room #: 210-P [facility] IN M.R.#: [id number] Admission: 01/09/21 Attend Phys: Akbar Ramirez MD Discharge: Date of : 60 Report #: [id number] PHYSICAL EXAMINATION: VITAL SIGNS: Temperature is 98.0, pulse 78, blood pressure 111/38, respiratory rate is 18. GENERAL: She is alert and oriented x3, no acute distress. HEENT: Sclerae nonicteric. Oropharynx clear. NECK: Supple. She does have some residual edema in her right mandibular area from recent abscess, is mildly tender, but is mild. CHEST: Clear to auscultation bilaterally. CARDIAC: Regular rate. ABDOMEN: Soft. She is tender to palpation in the right lower quadrant and the periumbilical region. EXTREMITIES: No cyanosis, clubbing or edema. LABORATORY DATA: Sodium 139, potassium 4.5, chloride 111, bicarbonate 16, BUN 13, creatinine 1.0, glucose 117, total bilirubin 0.4, calcium 7.9, alkaline phosphatase 227, ALT 26, albumin 1.9. WBC is 7.9, hemoglobin 8.7, platelet count is 222. C. diff has been ordered. ASSESSMENT AND PLAN: 1. Right lower quadrant abdominal pain. CT showing possible colitis in the ascending and transverse colon. The patient just had a colonoscopy 1 month ago. No evidence of colitis at that time. Differential would include infectious, but suspect less likely as the patient has been on antibiotics recently, although need to consider C. diff. Dr. Aguilar Porter and I discussed the case this morning. C. diff has been ordered and is pending. Would consider the possibility of ischemic colitis, which is possible. She denies any diarrhea at this time or blood in her stools. Inflammatory bowel disease would be very unlikely as she has just had a colonoscopy last month and it was negative. I explained this to the patient, explained we could proceed with repeat colonoscopy in order to obtain a biopsy. She would rather not do this, especially since she just had a colonoscopy a month ago. In the meantime, the plan is to continue to monitor. I will review the CT with radiologist as far as the vascular mesenteric vessels. We will await C. diff results. 2. History of chronic alcohol abuse. The patient with mild elevation in her AST and alkaline phosphatase. Liver appears somewhat enlarged on CT, there is evidence of ascites. This may be secondary, however, reactive to colitis as she had no evidence of portal hypertensive gastropathy or varices on recent endoscopy. We will obtain an ammonia level as well at this time. Continue to monitor. 3. Anemia. There are no signs of GI bleed and again the patient just had EGD, colonoscopy. We will continue to monitor hemoglobin. [facility] [address] [place] [address] CONSULTATION Name: ZHANG SILVA Room #: 210-P ADM IN M.R.#: [id number] Admission: 01/09/21 Attend Phys: Akbar Ramirez MD Discharge: Date of : 60 Report #: [id number] Thank you for allowing me to participate in her care. <ELECTRONICALLY SIGNED> By: Sammy Davalos MD 01/15/21 1426 0952 1150 Sammy Davalos MD /nt
[2021-01-15 16:17] VITALS: BP 111/67
[2021-01-15 18:06] LABS: GLOBULIN TOTAL 3.6 g/dL (2.2-3.9); M-SPIKE Not Observed g/dL (Not Observed)
--- NOTE | 2021-01-15 19:20 | NUR ---
PATIENT TRANSFERED FROM CCU TO 4W ROOM 455. PLACED ON MONITOR. STARTED IVF AND ABX HUNG. PRN PAIN MEDICATION GIVEN PER MAR. PATIENT TO START BOWEL PREP. SPOKE WITH PHARMACY. WAITING FOR THEM TO SEND MEDICATION. [facility]PORT G[facility].
[2021-01-15 19:50] VITALS: BP 122/71
--- NOTE | 2021-01-16 03:54 | NUR ---
ASSUMED PT CARE THIS PM. PT IS ALERT AND ORIENTED X4. PT DID NOT C/O N/V BUT C/O PF PAIN WHICH WAS MANAGED BY PRN MEDS. BOWEL PREP COMPLETED FOR COLONOSCOPY. PT IS CURRNETLY NPO. PT IS ON CONTACT PRECAUTION FOR VRE. MEDS WERE GIVEN PER EMAR ORDERS. FALL PRECAUTIONS IN PLACE. WILL CONTINUE TO MONITOR.
[2021-01-16 04:02] VITALS: BP 103/45
[2021-01-16 05:37] LABS: HEMATOCRIT 24.7 % (37.0-47.0); HEMOGLOBIN 7.9 gm/dL (12.0-15.0); MCH 33.2 pg (26.0-34.0); MCV 103.8 fL (80.0-100.0); RBC 2.38 mil/uL (4.20-5.00); RDW 16.6 % (10.5-14.5); WBC 9.2 thou/uL (4.0-11.0)
[2021-01-16 05:53] LABS: CREATININE 1.2 mg/dL (0.6-1.0); MAGNESIUM 1.7 mg/dL (1.8-2.4); POTASSIUM 3.5 mmol/L (3.5-5.1)
[2021-01-16 08:25] VITALS: BP 105/55
--- NOTE | 2021-01-16 13:47 | NUR ---
PT IS HAVING A COLONOSCOPY THIS DAY. CM FOLLOWING REGARDING DC PLANNING.
--- NOTE | 2021-01-16 18:54 | NUR ---
PT ALERT AND ORIENTED TIMES FOUR. VSS. BRADLEY TO DD. PT HAD COLONOSCOPY DONE TODAY. PT C/O PAIN PRN PAIN MEDICATIONS GIVEN WITH GOOD RELEIF. PT TOLERATES MEDS AND MEALS. POSSIBLE PLANS FOR DISCHARGE TOMORROW. WILL CONTINUE TO MONITOR.
[2021-01-16 20:06] VITALS: BP 113/52
--- NOTE | 2021-01-17 03:02 | NUR ---
PT CARE ASSUMED WITH PT IN BED WATCHING TV.PT IS A/O X4.PT IS UP WITH X1 ASSIST.PT C/O PAIN RLQ AND PAIN MANAGED WITH FENTANYL PRN WITH PARTIAL RELIEF.PT ON ROOM AIR.IV ACCESS ON RFA WITH NS AT 75CC/HR.WILL CONTINUE TO MONITOR PER POC
[2021-01-17 05:16] VITALS: BP 119/57
[2021-01-17 08:03] VITALS: BP 108/56
[2021-01-17 08:10] LABS: HEMATOCRIT 25.5 % (37.0-47.0); HEMOGLOBIN 8.1 gm/dL (12.0-15.0); MCH 32.7 pg (26.0-34.0); MCHC 31.8 g/dL (28.0-37.0); MCV 103.1 fL (80.0-100.0); RBC 2.47 mil/uL (4.20-5.00); RDW 17.2 % (10.5-14.5); WBC 7.3 thou/uL (4.0-11.0)
--- NOTE | 2021-01-17 08:17 | P ---
[facility] [place] [address] PROCEDURE REPORT Name: ZHANG SILVA Room #: 455-P ADM IN M.R.#: [id number] Admission: 01/09/21 Attend Phys: Akbar Ramirez MD Discharge: Date of : 60 Report #: [id number] THIS REPORT FOR: cc: Brittni Esposito Pamela D. DO McElhinney, Christian C. MD ~ cc: Juanito Small MD, Maco Porter MD DATE OF SERVICE: 01/16/2021 PROCEDURE PERFORMED: Colonoscopy with biopsies. HISTORY OF PRESENT ILLNESS: The patient is a 60-year-old female with recent onset right lower quadrant abdominal pain. She underwent an EGD and colonoscopy by my partner 1 month ago, which was essentially negative. The patient was not having pain at that time. She underwent a CT scan of the abdomen and pelvis on 01/12/2021. CT findings consistent with colitis involving the proximal colon extending from the ascending colon to the distal transverse colon without evidence of abscess or perforation. Small amount of ascites was noted, likely reactive. The patient had a previous buccal abscess and was treated with antibiotics recently. C. diff, currently is negative. Plan is for colonoscopy. DESCRIPTION OF PROCEDURE: The risks and benefits of the procedure were explained to the patient, those risks including but not limited to bleeding, perforation and the risk of sedation. She understood these risks and gave informed consent. Sedation was given using propofol per anesthesia. Next, a digital rectal exam was initially performed, which was normal. Next, using a standard Olympus colonoscope, the scope was placed in the patient's anus and advanced under direct vision to the cecum. The overall prep was good. A moderate to severe colitis with ulcerations were noted involving the cecum, ascending colon and transverse colon with skip areas of normalcy in between. There was no active bleeding. Multiple biopsies were obtained. The terminal ileum was intubated and normal in appearance. The descending colon was normal. Multiple diverticula were noted in the sigmoid colon. No evidence of inflammation. The rectal mucosa was normal. The scope was then withdrawn and the procedure terminated. The patient tolerated the procedure well. IMPRESSION: Multiple areas of colitis and ulceration involving the cecum, ascending and transverse colon. Multiple biopsies were obtained. Suspect etiology is recent ischemic colitis, less likely inflammatory bowel disease as the patient just had a colonoscopy 1 month ago, which was negative and less likely infectious as the patient has been on recent antibiotics and Clostridium difficile is negative. RECOMMENDATIONS: 1. Await biopsy results. [address] [address] PROCEDURE REPORT Name: ZHANG SILVA Room #: 455-P [facility] IN M.R.#: [id number] Admission: 01/09/21 Attend Phys: Akbar Ramirez MD Discharge: Date of : 60 Report #: [id number] 2. I reviewed the patient's recent CT scan with radiologist. It appears her mesenteric vessels are patent. We will continue supportive care. Thank you for allowing me to participate in her care. <ELECTRONICALLY SIGNED> By: Sammy Davalos MD 01/17/21 0817 1258 1312 Sammy Davalos MD /nt
[2021-01-17 08:28] LABS: CALCIUM 8.2 mg/dL (8.5-10.1); CREATININE 1.1 mg/dL (0.6-1.0); MAGNESIUM 1.8 mg/dL (1.8-2.4); POTASSIUM 3.9 mmol/L (3.5-5.1)
[2021-01-17] MEDS ORDERED: IRON325 PO (15:04)
[2021-01-17] MEDS ORDERED: AUGMENTIN 875-1 EACH PO (15:05)
[2021-01-17] MEDS ORDERED: PROTONIX40 M2 PO (15:05)
[2021-01-17 15:17] VITALS: BP 122/63
--- NOTE | 2021-01-17 16:18 | NUR ---
PT HAD COLONOSCOPY YESTERDAY. CARE TEAM INDICATED THAT PT IS MEDICALLY STABLE TO DC HOME THIS DAY. PT TO DC HOME TO SELF CARE. PT CAN AFFORD TO FILL MEDS UPON DC AND WILL AQUIRE AD/FWW FROM HER AL FACILITY FOR USE UPON DC. INFO FOR ESTABLISHING FOLLOW UP CARES AND SUBSTANCE ABUSE RESOURCES PROVIDED. NO OTHER CM INTERVENTION INDICATED. CASE CLOSED.
--- NOTE | 2021-01-17 17:41 | NUR ---
ASSESSMENT CHARTED. PT ALERT AND ORIENTED. VSS. PRN PAIN MED GIVEN WITH PARTIAL RELIEF. CONTACT PRECAUTION ENFORCED. SEEN BY DR. PALACIOS. ORDERS GIVEN TO DISCHARGE PT TO HOME. DISCHARGE INTSRUCTIONS GIVEN TO PT. PT VERBERLISED UNDERSTANDING.
--- NOTE | 2021-01-18 14:10 | PATH ---
[facility] [place] [address] PATHOLOGY RPT PROCEDURE Name: LUIS ANGEL SILVA Room #: 455-P DIS IN M.R.#: [id number] Admission: 01/09/21 Date of : 60 Discharge: 01/17/21 Report #: [id number] Path Case #: [id number] [facility] Accession Number: [id number] . 01 Material submitted: . PART A: colon - ASCENDING COLON BIOPSY R/O COLITIS. Modifiers: ascending PART B: hepatic flexure - HEPATIC FLEXURE R/O COLITIS PART C: colon - TRANSVERSE COLON BIOPSY R/O COLITIS. Modifiers: transverse . 01 Clinical history: . COLONOSCOPY COLITIS; R/O ISCHEMIA . 02 Diagnosis: A. Large intestine mucosa, ascending colon, endoscopic biopsy: - Mild active colitis. - Negative for ischemia. - Negative for dysplasia or malignancy. . B. Large intestine mucosa, hepatic flexure, endoscopic biopsy: - Mild active colitis. - Negative for ischemia. - Negative for dysplasia or malignancy. . C. Large intestine mucosa, transverse colon, endoscopic biopsy: - Mild active colitis. - Negative for ischemia. - Negative for dysplasia or malignancy. (IUV:hong; 01/17/2021) QMS 01/17/2021 1459 Local . 02 Comment: Sections of the colonic mucosa designated "ascending colon, hepatic flexure, and transverse colon" biopsy tissues show focal cryptitis, and a moderately cellular lamina propria composed predominantly of lymphocytes and plasma cells and occasional eosinophils. Surface ulceration is not identified. There are no crypt abscesses, granulomas or viral inclusions. The process affects all the fragments with a similar intensity. Given the description, the differential diagnosis includes focal acute colitis of self limited etiology, infectious-type of colitis, active diverticulitis, medication/drug induced colitis as well as early inflammatory bowel disease. Features of ischemia are not identified within any of the sampled fragments. Please correlate with clinical as well as endoscopic findings. (IUV:hong; 01/17/2021) . 02 Electronically signed: . [address] [address] PATHOLOGY RPT PROCEDURE Name: LUIS ANGEL SILVA Room #: 455-P DIS IN M.R.#: [id number] Admission: 01/09/21 Date of : 60 Discharge: 01/17/21 Report #: [id number] Path Case #: [id number] Leona Bermudez MD, Pathologist NPI- [id number] . 01 Gross description: . A. The specimen is submitted in formalin, labeled "[place], Luis Angel, ascending colon BX". Received are multiple segments of pale joseph tissue ranging in size from 0.2 to 0.4 cm in maximum dimensions. The specimen is submitted entirely in cassette A1. . B. The specimen is submitted in formalin, labeled "[place], Luis Angel, hepatic flexure". Received are 2 segments of pale joseph tissue ranging in size from 0.3 to 0.4 cm in maximum dimensions. The specimen is submitted entirely in cassette B1. . C. The specimen is submitted in formalin, labeled "[place], Ulis Angel, transverse:". Received are 3 segments of pale joseph tissue ranging in size from 0.3 to 0.4 cm in maximum dimensions. The specimen is submitted entirely in cassette C1. ([facility]; 01/16/2021) NRI/DKA 01/16/2021 2040 Local . 02 Pathologist provided ICD-10: K52.9, Z12.11 . 02 CPT . 398939, 692581, 392798 Specimen Comment: A courtesy copy of this report has been sent to [phone], [phone] Specimen Comment: [phone], Specimen Comment: Report sent to ,DR EATON AND DR PALACIOS Performed at: [address], [place] [id number] MD Ino Whipple MD Phone: [phone] Performed at: [address] [id number] MD Leona Bermudez MD Phone: [phone]
== END 2021-01-17 17:39 | disposition home or self-care (01) | DRG 392 ==
LOC: ER 13:57 → EROBS 16:16 → 2N 20:58 → 4W 01-15 16:03
PROVIDERS: Emergency Medicine; Internal Medicine; Internal Medicine Hematology & Oncology; Internal Medicine Nephrology; ADMIT Hospitalist; ATTEND Hospitalist
PROC: 0DBK8ZX Excision of Ascending Colon, Via Natural or Artificial Opening Endoscopic, Diagnostic (ICD-10-PCS; principal; 2021-01-16)
PROC: 0DBL8ZX Excision of Transverse Colon, Via Natural or Artificial Opening Endoscopic, Diagnostic (ICD-10-PCS; principal; 2021-01-16)
DX: K52.9 Noninfective gastroenteritis and colitis, unspecified (principal); N17.9 Acute kidney failure, unspecified; L03.211 Cellulitis of face; F32.9 Major depressive disorder, single episode, unspecified; E87.5 Hyperkalemia; F17.210 Nicotine dependence, cigarettes, uncomplicated; N18.32 Chronic kidney disease, stage 3b; N13.9 Obstructive and reflux uropathy, unspecified; F41.1 Generalized anxiety disorder; F10.20 Alcohol dependence, uncomplicated; N30.90 Cystitis, unspecified without hematuria; I12.9 Hypertensive chronic kidney disease with stage 1 through stage 4 chronic kidney disease, or unspecified chronic kidney disease; E11.22 Type 2 diabetes mellitus with diabetic chronic kidney disease; T50.905A Adverse effect of unspecified drugs, medicaments and biological substances, initial encounter; B95.62 Methicillin resistant Staphylococcus aureus infection as the cause of diseases classified elsewhere; E53.8 Deficiency of other specified B group vitamins; D50.9 Iron deficiency anemia, unspecified; Z20.822 Contact with and (suspected) exposure to COVID-19; Z88.6 Allergy status to analgesic agent; Z88.8 Allergy status to other drugs, medicaments and biological substances; Z79.1 Long term (current) use of non-steroidal anti-inflammatories (NSAID); Z71.41 Alcohol abuse counseling and surveillance of alcoholic; Y92.89 Other specified places as the place of occurrence of the external cause
CPT/HCPCS: 10045; 10081; 62110; 62900; 70005

== ENCOUNTER 2021-03-17 19:08 | Emergency (ER) | payer OTHER ==
[~2021-03-17] VITALS: Ht 167.6 cm; Wt 73.5 kg
[~2021-03-17 19:08] MED LIST changes: +AUGMENTIN 875-1 EACH PO; +IRON325 PO; +PROTONIX40 M2 PO
[2021-03-17 19:42] LABS: URINE BILIRUBIN NEGATIVE (Negative); URINE BLOOD 2+ (Negative); URINE CLARITY CLOUDY; URINE COLOR YELLOW; URINE GLUCOSE-RANDOM* NEGATIVE (Negative); URINE KETONES NEGATIVE (Negative); URINE NITRITE-REFLEX NEGATIVE (Negative); URINE PROTEIN (DIPSTICK) NEGATIVE (Negative); URINE UROBILINOGEN 0.2 E.U./dl (0.2-1.0)
[2021-03-17 19:43] LABS: URINE LEUKOCYTES-REFLEX 2+ (Negative)
[2021-03-17 19:52] LABS: BACTERIA-REFLEX >30 Many /HPF (None Seen); CASTS None Seen /LPF (None Seen); CRYSTALS None Seen /LPF (None Seen); MUCUS 0-3 Light strn/LPF (None Seen); SQUAMOUS 4-10 Moderate /LPF (0-3); TRANSITIONAL EPITHEL CELL 0-3 Few /LPF (None Seen); URINE RBC 3-10 Few /HPF (NONE SEEN)
[2021-03-17 20:04] LABS: ABSOLUTE NEUTROPHILS 10.7 thou/uL (1.4-8.2); BASOPHILS 0.4 % (0.0-2.0); EOSINOPHILS 1.4 % (0.0-3.0); HEMATOCRIT 33.1 % (37.0-47.0); HEMOGLOBIN 10.6 gm/dL (12.0-15.0); LYMPHOCYTES 11.1 % (24.0-44.0); MCH 33.3 pg (26.0-34.0); PLATELET COUNT 213 thou/uL (150-400); POLYS 78.1 % (36.0-66.0); RBC 3.18 mil/uL (4.20-5.00); RDW 14.8 % (10.5-14.5); WBC 13.8 thou/uL (4.0-11.0)
[2021-03-17 20:12] LABS: CALCIUM 8.5 mg/dL (8.5-10.1); CREATININE 1.4 mg/dL (0.6-1.0)
[2021-03-17 20:16] LABS: ALBUMIN 2.5 g/dL (3.4-5.0); DIRECT BILIRUBIN 0.2 mg/dL (<0.1-0.2); TOTAL BILIRUBIN 0.3 mg/dL (0.2-1.0); TOTAL PROTEIN 7.4 g/dL (6.4-8.2)
[2021-03-17 22:30] VITALS: BP 153/84
== END 2021-03-17 22:30 | disposition home or self-care (01) ==
LOC: ER 19:08
PROVIDERS: Student in an Organized Health Care Education/Training Program
DX: T83.018A Breakdown (mechanical) of other urinary catheter, initial encounter (principal); Z20.822 Contact with and (suspected) exposure to COVID-19; F32.9 Major depressive disorder, single episode, unspecified; I10 Essential (primary) hypertension; N19 Unspecified kidney failure; E11.9 Type 2 diabetes mellitus without complications; R18.8 Other ascites; E87.1 Hypo-osmolality and hyponatremia; F17.210 Nicotine dependence, cigarettes, uncomplicated; Z79.51 Long term (current) use of inhaled steroids; Z79.891 Long term (current) use of opiate analgesic; Z79.899 Other long term (current) drug therapy; Z88.5 Allergy status to narcotic agent; Z88.8 Allergy status to other drugs, medicaments and biological substances; Z88.6 Allergy status to analgesic agent

== ENCOUNTER 2021-04-07 11:47 | Inpatient (IN) | payer OTHER ==
[~2021-04-07] VITALS: Ht 170.2 cm; Wt 74.8 kg
--- NOTE | ~2021-04-07 | EMS ---
[address] [address] EMS Patient Care Report Name: ZHANG SILVA Room #: 440-P ADM IN M.R.#: [id number] Admission: 04/07/21 Attend Phys: Nivia Natarajan MD Discharge: Date of : 60 Report #: [id number] THIS REPORT FOR: //name// Report Transmitted: 04/09/2021 14:28 EMS Care Summary [place], [place]/[facility] Incident [phone] @ 04/07/2021 11:13 Incident Location [address] [place], [place] [id number] Patient ZHANG SILVA Female, 60 Years 1960 Patient Address [address] [place] [address] Patient History Back Pain (Chronic), Patient Allergies No known allergies, Patient Medications Other, Chief Complaint DIZZINESS Disposition Transported No Lights/Pool Dispatch Reason Unconscious/Fainting Transported To [facility] Narrative M30 RESPONDED TO A FAINTING. ON SCENE M30 FOUND A 60 YR OLD FEMALE LAYING BACK ON HER BED. FEMALE WAS FULLY DRESSED. PT WAS A&OX4, GCS OF 15. PT WAS NOT IN ANY DISTRESS OR DISCOMFORT. NO TRAUMA RO BLEEDING NOTED. FEMALE STATED THAT SHE HAD BEEN SLEEPING FOR 3 DAYS STRAIGHT. FEMALE COMPLAINED OF EXTREME DIZZINESS, [address] [address] EMS Patient Care Report Name: ZHANG SILVA Room #: 440-P ADM IN .R.#: [id number] Admission: 04/07/21 Attend Phys: Nivia Natarajan MD Discharge: Date of : 60 Report #: [id number] BUT DENIED ANY LOC. PT ALSO STATED THAT SHE HAS CHRONIC LOWER BACK PAIN. PT WAS WALKED WITH A LOT OF ASSISATNCE FROM EMS OUTISDE OF HER HOME TO WHERE THE STRETCHER WAS WAITING FOR HER. PT WAS ASSISTED INTO THE COT AND SHE WAS SECURED WITH SEATBELTS. PT WAS MOVED TO THE AMBULANCE. PT'S CONDITION REMAINED STABLE AND UNCHANGED DURING NON EMERGENCY TRANSPORT TO [facility]. PT CARE WAS TRANSFERRED TO ER STAFF IN ROOM 07. PT WAS ABLE TO SLIDE OVER TO MEDICAL BED WIT ASSISTANCE. PT WAS LEFT IN BED WITH RAILS UP AND IN THE LOCKED POSITION, AND UNDER RN CARE Initial Vitals @11:35P: 81,BP: 109/61,CO: 4,SpO2: 93, @11:44 @11:32P: 89,R: 16,BP: 108/74,Pain: 10/10,GCS: 15,Glucose: 61,CO: 4,SpO2: 93,Revised Trauma: 12, Assessments @11:20MENTAL:Event Oriented,Person Oriented,Time Oriented,Place Oriented,SKIN:HEENT:Head/Face: No Abnormalities,LUNG SOUNDS:General: No Abnormalities,Left Upper: No Abnormalities,Right Upper: No Abnormalities,Left Lower: No Abnormalities,Right Lower: No Abnormalities,ABDOMEN:General: No Abnormalities,Left Upper: No Abnormalities,Right Upper: No Abnormalities,Left Lower: No Abnormalities,Right Lower: No Abnormalities,PELVIS//GI:No Abnormalities,EXTREMITIES:PULSE:NEURO: Impression Dizziness Procedures @11:20 ALS Assessment Response: UnchangedSucceeded @11:25 IV Therapy - Saline Lock 5cc (18 ga) Site: Forearm-Left Response: UnchangedSucceeded Timeline 11:07,Call Received 11:07,Dispatch Notified 11:13,Dispatched 11:13,En Route 11:19,On Scene 11:20,At Patient 11:20,ALS Assessment,Response: UnchangedSucceeded, 11:25,IV Therapy - Saline Lock 5cc 18 ga Site: Forearm-Left,Response: UnchangedSucceeded, 11:32,BP: 108/74 M,PULSE: 89,RR: 16 R,SPO2: 93 Ox,ETCO2: ,B,PAIN: 10,GCS: 15, 11:35,BP: 109/61 M,PULSE: 81,RR: R,SPO2: 93 Ox,ETCO2: ,BG: ,PAIN: ,GCS: , [address] [address] EMS Patient Care Report Name: ZHANG SILVA Room #: 440-P [facility] IN M.R.#: [id number] Admission: 04/07/21 Attend Phys: Nivia Natarajan MD Discharge: Date of : 60 Report #: [id number] 11:37,Depart Scene 11:44,BP: / M,PULSE: ,RR: R,SPO2: Ox,ETCO2: ,BG: ,PAIN: ,GCS: , 11:44,At Destination 11:59,Call Closed Disclaimer v1.1 Copyright 2021 [employer] This EMS Care Summary contains data elements from the applicable legal record (which may be displayed differently). It is designed to provide pertinent information for the following purposes: continuity of care, clinical quality, and state data reporting. The complete legal record is available to ED staff and administrators of the receiving hospital in [employer]'s Patient Tracker. All data is provided "as is."
[2021-04-07 11:52] VITALS: BP 107/55
[2021-04-07 12:23] LABS: ABSOLUTE NEUTROPHILS 8.1 thou/uL (1.4-8.2); BASOPHILS 1.2 % (0.0-2.0); EOSINOPHILS 1.4 % (0.0-3.0); HEMOGLOBIN 11.2 gm/dL (12.0-15.0); LYMPHOCYTES 16.2 % (24.0-44.0); MCH 32.1 pg (26.0-34.0); MCHC 32.1 g/dL (28.0-37.0); MONOCYTES 10.1 % (1.0-8.0); PLATELET COUNT 247 thou/uL (150-400); POLYS 71.1 % (36.0-66.0); RDW 14.6 % (10.5-14.5); WBC 11.4 thou/uL (4.0-11.0)
[2021-04-07 13:05] LABS: CREATININE 2.1 mg/dL (0.6-1.0); POTASSIUM 3.4 mmol/L (3.5-5.1)
[2021-04-07] MEDS ORDERED: BENZONATATE200 MG PO ×2 (13:05)
[2021-04-07] MEDS ORDERED: DICLOFENAC POTA50 MG PO (13:06)
[2021-04-07] MEDS ORDERED: STOOL SOFTENER250 MG PO (13:06)
[2021-04-07] MEDS ORDERED: TYLENOL ARTHRI650 MG PO (13:06)
[2021-04-07] MEDS ORDERED: CALCIUM500 MG PO (13:09)
[2021-04-07 13:11] LABS: ALBUMIN 2.4 g/dL (3.4-5.0); TOTAL BILIRUBIN 0.4 mg/dL (0.2-1.0); TOTAL PROTEIN 8.1 g/dL (6.4-8.2)
[2021-04-07 15:47] LABS: URINE BILIRUBIN NEGATIVE (Negative); URINE BLOOD 3+ (Negative); URINE CLARITY HAZY; URINE COLOR YELLOW; URINE GLUCOSE-RANDOM* NEGATIVE (Negative); URINE KETONES NEGATIVE (Negative); URINE LEUKOCYTES-REFLEX 3+ (Negative); URINE NITRITE-REFLEX POSITIVE (Negative); URINE PROTEIN (DIPSTICK) NEGATIVE (Negative); URINE SPECIFIC GRAVITY 1.015 (1.005-1.035); URINE UROBILINOGEN 0.2 E.U./dl (0.2-1.0)
[2021-04-07] MEDS ORDERED: DILAUDID 2 MG TA2 MG PO ×2 (15:49)
[2021-04-07 15:54] LABS: SQUAMOUS 0-3 Few /LPF (0-3); URINE WBC-REFLEX 6-15 Few /HPF (0-5)
[2021-04-07 15:55] LABS: AMORPHOUS URATES Moderate /LPF (None Seen); BACTERIA-REFLEX >30 Many /HPF (None Seen); CASTS None Seen /LPF (None Seen); URINE RBC 3-10 Few /HPF (NONE SEEN)
--- NOTE | 2021-04-07 17:05 | NUR ---
PT COMPLAINS OF BACK PAIN. DR HA CALLED ABOUT THE PAIN AND SHE SAID SHE WILL START THE AT HOME MEDICATIONS BACK UP
[2021-04-07 18:52] VITALS: BP 118/59
[2021-04-07 20:34] VITALS: BP 122/88
--- NOTE | 2021-04-07 20:38 | EKG ---
[address] [place] [address] ELECTROCARDIOGRAM REPORT Name: ZHANG SILVA Room #: 440-P ADM IN M.R.#: [id number] Admission: 04/07/21 Attend Phys: Nivia Natarajan MD Discharge: Date of : 60 Report #: [id number] [facility] ED Test Date: 2021-04-07 Test Time: 12:13:36 Pat Name: ZHANG SILVA Department: Room: 440 Gender: F Insurance Marketing Specialist: helen : 1960 Requested By: Kike Weinstein Order Number: [id number] MD: Adeel De Jesus Measurements Intervals Covel Rate: 67 P: 35 LA: 164 QRS: 14 QRSD: 102 T: 27 QT: 461 QTc: 487 Interpretive Statements Sinus rhythm Abnormal R-wave progression, early transition Nonspecific T abnormalities, anterior leads Borderline prolonged QT interval Compared to ECG 01/09/2021 14:08:42 T-wave abnormality now present Electronically Signed On 04-07-2021 20:38:43 DRY PRESS OPERATOR by Adeel De Jesus [email or web address] <ELECTRONICALLY SIGNED> By: Adeel De Jesus MD, [facility] 04/07/212037 1213 1213 Adeel De Jesus MD, [facility] /EPI
[2021-04-07 20:40] VITALS: BP 106/56
--- NOTE | 2021-04-07 20:40 | EKG ---
[address] [place] [address] ELECTROCARDIOGRAM REPORT Name: ZHANG SILVA Room #: 440-P ADM IN M.R.#: [id number] Admission: 04/07/21 Attend Phys: Nivia Natarajan MD Discharge: Date of : 60 Report #: [id number] [facility] ED Test Date: 2021-04-07 Test Time: 13:34:17 Pat Name: ZHANG SILVA Department: Room: 440 Gender: F Sampling Expert: nahid : 1960 Requested By: Kike Weinstein Order Number: [id number] MD: Adeel De Jesus Measurements Intervals [place] Rate: 60 P: 33 AL: 181 QRS: 7 QRSD: 104 T: 28 QT: 496 QTc: 496 Interpretive Statements Sinus rhythm Abnormal R-wave progression, early transition Nonspecific T abnormalities, anterior leads Borderline prolonged QT interval Compared to ECG 04/07/2021 12:13:36 No significant changes Electronically Signed On 04-07-2021 20:40:08 ACCOUNTS PAYABLE CLERK by Adeel De Jesus [email or web address] <ELECTRONICALLY SIGNED> By: Adeel De Jesus MD, [facility] 04/07/212039 1334 1334 Adeel De Jesus MD, [facility] /EPI
[2021-04-07 21:38] LABS: ABSOLUTE NEUTROPHILS 6.9 thou/uL (1.4-8.2); BASOPHILS 0.7 % (0.0-2.0); EOSINOPHILS 2.2 % (0.0-3.0); HEMATOCRIT 31.7 % (37.0-47.0); HEMOGLOBIN 10.4 gm/dL (12.0-15.0); LYMPHOCYTES 14.4 % (24.0-44.0); MCH 32.5 pg (26.0-34.0); MCHC 32.8 g/dL (28.0-37.0); MCV 99.3 fL (80.0-100.0); MONOCYTES 8.5 % (1.0-8.0); PLATELET COUNT 175 thou/uL (150-400); POLYS 74.2 % (36.0-66.0); RBC 3.19 mil/uL (4.20-5.00); RDW 14.3 % (10.5-14.5); WBC 9.3 thou/uL (4.0-11.0)
--- NOTE | 2021-04-08 01:12 | NUR ---
PT WAS ADMITTED TO THE UNIT FROM THE ER IN A STABLE CONDITION.PT DENIED PAIN ON ADMIT.PT WITH HX OF RETENSION,BRADLEY CATH IN PLACE.ADMISSION COMPLETED.PT RESTING ON HER BED AT THIS TIME.CALL LIGHT WITHIN REACH.
[2021-04-08 08:03] VITALS: BP 114/72
[2021-04-08 12:00] LABS: ABSOLUTE NEUTROPHILS 4.9 thou/uL (1.4-8.2); BASOPHILS 1.3 % (0.0-2.0); EOSINOPHILS 2.4 % (0.0-3.0); HEMOGLOBIN 11.5 gm/dL (12.0-15.0); LYMPHOCYTES 13.1 % (24.0-44.0); MCH 31.6 pg (26.0-34.0); MCHC 31.9 g/dL (28.0-37.0); MONOCYTES 8.3 % (1.0-8.0); PLATELET COUNT 138 thou/uL (150-400); POLYS 74.9 % (36.0-66.0); RBC 3.64 mil/uL (4.20-5.00); RDW 14.3 % (10.5-14.5); WBC 6.6 thou/uL (4.0-11.0)
[2021-04-08 12:26] LABS: CALCIUM 7.2 mg/dL (8.5-10.1); CREATININE 1.4 mg/dL (0.6-1.0); MAGNESIUM 1.3 mg/dL (1.8-2.4); TOTAL BILIRUBIN 0.4 mg/dL (0.2-1.0); TOTAL PROTEIN 7.3 g/dL (6.4-8.2)
--- NOTE | 2021-04-08 16:04 | NUR ---
PATIENT ALERT AND ORIENTED THIS SHIFT. C/O PAIN. DILAUDED PO GIVEN ORDERED. IV ANTIBIOTICS/FLUIDS CONTINUING. BRADLEY CHANGED PER ED (04/06/21). RESTING COMFORTABLY. VSS
[2021-04-08 16:40] VITALS: BP 121/69
--- NOTE | 2021-04-09 03:10 | NUR ---
pt is alert and oriented. francine to d/d. tried to get to the bsc,but it was very difficult due to lower back pain. diuladid PO given with relief.
[2021-04-09 06:02] LABS: ABSOLUTE NEUTROPHILS 4.8 thou/uL (1.4-8.2); BASOPHILS 0.9 % (0.0-2.0); EOSINOPHILS 3.6 % (0.0-3.0); HEMOGLOBIN 10.2 gm/dL (12.0-15.0); LYMPHOCYTES 14.7 % (24.0-44.0); MCH 32.3 pg (26.0-34.0); MCHC 32.9 g/dL (28.0-37.0); MCV 98.3 fL (80.0-100.0); MONOCYTES 9.7 % (1.0-8.0); PLATELET COUNT 151 thou/uL (150-400); POLYS 71.1 % (36.0-66.0); RBC 3.15 mil/uL (4.20-5.00); WBC 6.8 thou/uL (4.0-11.0)
[2021-04-09 06:12] LABS: CALCIUM 7.4 mg/dL (8.5-10.1); CREATININE 1.1 mg/dL (0.6-1.0); MAGNESIUM 1.4 mg/dL (1.8-2.4); PHOSPHORUS 2.4 mg/dL (2.5-4.9); POTASSIUM 3.1 mmol/L (3.5-5.1)
[2021-04-09 16:30] VITALS: BP 135/82
[2021-04-09 19:41] VITALS: BP 126/72
--- NOTE | 2021-04-10 04:05 | NUR ---
Pt. rested quietly at intervals during the night when checked on during frequent rounds. She c/o nausea and ivp anti-nausea med given (see emar) with some relief noted. She c/o periods of dizziness also. Bp stable at 128/68. Bed alarm is on.
[2021-04-10 07:52] VITALS: BP 155/86
[2021-04-10 07:54] LABS: ABSOLUTE NEUTROPHILS 5.8 thou/uL (1.4-8.2); EOSINOPHILS 2.6 % (0.0-3.0); HEMOGLOBIN 10.8 gm/dL (12.0-15.0); LYMPHOCYTES 11.1 % (24.0-44.0); MCH 32.5 pg (26.0-34.0); MCHC 32.8 g/dL (28.0-37.0); MCV 99.3 fL (80.0-100.0); MONOCYTES 7.8 % (1.0-8.0); PLATELET COUNT 164 thou/uL (150-400); POLYS 77.5 % (36.0-66.0); RBC 3.32 mil/uL (4.20-5.00); RDW 14.4 % (10.5-14.5); WBC 7.5 thou/uL (4.0-11.0)
--- NOTE | 2021-04-10 08:08 | HC ---
[facility] [place] [address] CONSULTATION Name: ZHANG SILVA Room #: 440-P ADM IN M.R.#: [id number] Admission: 04/07/21 Attend Phys: Nivia Natarajan MD Discharge: Date of : 60 Report #: [id number] THIS REPORT FOR: cc: Brittni Esposito Pamela D. DO Barry, Joseph W. MD ~ DATE OF SERVICE: 04/09/2021 INFECTIOUS DISEASE CONSULTATION ATTENDING PHYSICIAN: Dr. Natarajan. REASON FOR EVALUATION: Complicated urinary tract infection in the setting of chronic indwelling Martins catheter. HISTORY OF PRESENT ILLNESS: Chart reviewed. The patient examined. This is a 60-year-old woman admitted through the Emergency Room. She has a significant medical history given her age including diabetes mellitus. She has issues with recurrent urinary tract infections due to a dysfunctional bladder, also has severe back pain that limits her activity. She complains of dizziness and progressive severe lower back pain, which she attributes to sciatica and piriformis muscle. She notes she has been getting weaker and was unable to get out of bed. She does utilize narcotic analgesics and she is followed by pain management. She did note a history of recurrent urinary tract infections, most recently hospitalized here in December-January with isolation of VRE. Also, at that time, had some Pseudomonas putida as well as have a history of MRSA skin and soft tissue infections. Blood cultures collected at the time of admission are negative thus far. Urine culture is pending. Urinalysis did note 6-15 white cells, greater than 30 bacteria. She was empirically started on antibiotic therapy with cefepime and vancomycin. ALLERGIES: CODEINE, HYDROCODONE, NAPROXEN, TRAMADOL. CURRENT MEDICATIONS: Include nicotine patch, cefepime, docusate, vitamins, thiamine, tamsulosin, famotidine, ferrous sulfate, albuterol, p.r.n. analgesics, anxiolytics, also vancomycin. PAST MEDICAL HISTORY: As described above, hypertension, history of depression, uropathy, diabetes mellitus type 2, history of renal insufficiency, piriformis syndrome. SOCIAL HISTORY: Regular ethanol use. A [id number]-fbgd history of smoking. No illicit drug use. FAMILY HISTORY: Noncontributory. [address] [address] CONSULTATION Name: ZHANG SILVA Room #: 440-P [facility] IN M.R.#: [id number] Admission: 04/07/21 Attend Phys: Nivia Natarajan MD Discharge: Date of : 60 Report #: [id number] REVIEW OF SYSTEMS: Otherwise, unremarkable. Denies any recent fevers, chills. Appetite has been somewhat variable. No pulmonary related complaints. PHYSICAL EXAMINATION: GENERAL: She does appear chronically ill, in moderate distress, generally lucid. VITAL SIGNS: Temperature 98, pulse 74, respirations 18, blood pressure 121/69. SKIN: Warm, dry, no rashes. HEENT: Normocephalic. Extraocular muscles intact. NECK: Supple. She is maintained on ambient air. LUNGS: Diminished breath sounds, some scattered coarse sounds. HEART: Regular, may have a soft systolic murmur. ABDOMEN: Mildly distended, somewhat firm. There are overt peritoneal signs. GENITOURINARY AND RECTAL: Deferred. LABORATORY DATA: CBC: White count 6.8, H and H 10.2 and 31.0, platelets of 151. Electrolytes: Sodium 138, potassium 3.1, chloride 106, bicarbonate is 22, anion gap of 10, BUN and creatinine 12 and 1.1. Liver function tests were generally unremarkable. Alkaline phosphatase borderline elevated at 119, albumin 2.0. Total protein 7.3, AST of 38. Blood cultures x 2 are sterile thus far. Urinalysis, moderate pyuria. ASSESSMENT: Severe back pain in a patient who has a chronic indwelling Martins catheter, history of urinary tract infections, has some inflammatory changes microscopically on the urine. For this reason, continue empiric therapy, pending the results. Based on previous results, likely a multiple resistant organism. At this point, she is not overtly toxic, attributes her pain to issues other than primary complicated urinary tract infection. We will monitor expectantly. Initiate incentive spirometry. Monitor for evidence of withdrawal. <ELECTRONICALLY SIGNED> By: Suleiman Montano MD 04/10/21 0808 [id number] Suleiman Montano MD /nt
[2021-04-10 08:25] LABS: ALBUMIN 2.1 g/dL (3.4-5.0); CALCIUM 8.5 mg/dL (8.5-10.1); MAGNESIUM 1.8 mg/dL (1.8-2.4); TOTAL BILIRUBIN 0.7 mg/dL (0.2-1.0); TOTAL PROTEIN 7.6 g/dL (6.4-8.2)
[2021-04-10 08:42] VITALS: BP 131/72
--- NOTE | 2021-04-10 12:21 | NUR ---
PT ALERT, CONFUSED AND FEARFUL THIS MORNING. OBVIOUS CONFUSION ADN PARANOIA OVERNIGHT. ORIENTED TO PERSON AND PLACE BUT NOT SITUATION OR TIME. IMPULSIVE AND TEARFUL. REASSURANCE AND REORIENTATION PROVIDED. PT ANXIETY IMPROVED, ORIENTATION IMPROVING DAY GOES ON. C/O CONSTIPATION WHICH HAS NOW RESOLVED AFTER ONE DOSE LACTULOSE. ASSISTING PT TO BSC EACH TIME D/T DIZZINESS THAT COMES AND GOES AND SCIATIC PAIN. MD AWARE. URINE CULTURE SENT FROM [facility]HETER [facility] (NOT FROM [facility]AG) AWAITING RESULTS. WILL CONT TO ADMIN IV ANTIBIOTICS TO TREAT UTI AND PROVIDE REASSURANCE THAT HER CONFUSION WILL PASS. WILL CONTINUE TO MONITOR AND POC.
[2021-04-10 15:04] VITALS: BP 149/73
[2021-04-10 16:05] VITALS: BP 128/78
--- NOTE | 2021-04-10 16:35 | NUR ---
Patient admitted from home with UTI. Patient resides in home with s/o. 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 Discussed post acute care. Dr Ramirez reports he sp with patient regarding skilled care and patient agreeable. Therapy evals recommend outpatient therapy. Patient reports she does not want to do outpatient as she does not drive. She is agreeable to skilled. she does not want HH care. In discussing post acute care patient has rec call that she is not in network with this hospital. Discussed patient needs to transfer to in network hospital. [facility] in network. Faxed clinical information to [facility]. At this time they do not have accepting hospital.
[2021-04-10 19:24] VITALS: BP 130/61
[2021-04-11 03:08] LABS: HEMATOCRIT 31.8 % (37.0-47.0); HEMOGLOBIN 10.4 gm/dL (12.0-15.0); MCH 32.5 pg (26.0-34.0); MCHC 32.7 g/dL (28.0-37.0); MCV 99.3 fL (80.0-100.0); RBC 3.21 mil/uL (4.20-5.00); RDW 14.1 % (10.5-14.5); WBC 7.6 thou/uL (4.0-11.0)
[2021-04-11 04:05] LABS: CALCIUM 8.2 mg/dL (8.5-10.1); POTASSIUM 3.6 mmol/L (3.5-5.1)
--- NOTE | 2021-04-11 04:56 | NUR ---
patient aox1 confused and forgetful.patient on ciwa ativan give d/t confusion.[facility] hopital rep. called patient was declined d/t no beds in [facility] and case has been closed. fall precaution in place. patient in bed asleep at this time breathing regular and unlaboured.
[2021-04-11 05:21] VITALS: BP 139/69
[2021-04-11 08:37] VITALS: BP 138/70
--- NOTE | 2021-04-11 09:38 | NUR ---
ASSUMED PT CARE THIS AM. PT IS ALERT & ORIENTED X1 TO SELF AND CONFUSED. PT IS ON CIWA PROTOCOL. PT IS ON ROOM AIR. GIVEN SCHEDULED MEDICATIONS THIS AM WITHOUT DIFFICULTIES. PT HAS IV SITE ON RFA. REITERATE TO PRESS THE CALL LIGHT WHEN NEEDED ASSISTANCE. WILL CONTINUE TO MONITOR PT. FOLLOW POC.
--- NOTE | 2021-04-11 17:14 | NUR ---
Spoke with patient regarding skilled care. Patient requests referral to [facility].
[2021-04-11 20:23] VITALS: BP 171/86
--- NOTE | 2021-04-12 06:13 | NUR ---
CARE ASSUMED AT 1900 PATIENT WAS AGITATED AND CIWA SCORE WAS HIGH PRN ATIVAN GIVEN. PAIN CONTROLLED THIS SHIFT. PATIENT HAD A BM THIS SHIFT. CATH CARE DONE.PATIENT NEEDS MINIMUM ASSISTANCE WITH ADL, BED MOBILITY, TRANSFER AND TOILETING. FALL PRECAUTION IN PLACE. PATIENT IN BED ASLEEP AT THIS TIME BREATHING REGULAR AND UNLABOURED.
[2021-04-12 08:15] VITALS: BP 134/75
--- NOTE | 2021-04-12 11:14 | NUR ---
Assumed care of pt at 0700. Pt a&ox4. Denies pain. Confused at times. IVF and IV antibiotics infusing. Martins catheter in place. Pt refuses to keep on telemetry box. Call light within reach. Fall precautions in place. Will continue to monitor.
--- NOTE | 2021-04-12 15:16 | NUR ---
Referral to [facility] for skilled care. Patients benefits deductable not met 5900 deductable. patient responsible for 50% of daily rate. [employer] to determine approx amout. Updated patient.
[2021-04-12 15:35] VITALS: BP 140/84
[2021-04-12 20:50] VITALS: BP 146/85
--- NOTE | 2021-04-13 01:22 | NUR ---
PT C/O PAIN TO HER BACK,MANAGED WITH MED.PT C/O THRUSH IN HER MOUTH,CALL CENTER AGENT ON DUTY NOTIFIED,ORDER NOTED.PT HAS REF TO HAVE HER TELE MONITOR,SHE TAKES IT OFF EACH TIME.PT STATED THAT SHE DOESN'T NEED IT.EDUCATION GIVEN.CALL CENTER AGENT ON DUTY NOTIIFED.PT STILL HAVE BRADLEY CATH DUE TO CHRONIC RETENTION.NO BM NOTED SO FAR.PT CONT ON IVF.CIWA SCORE DONE PT SCORED ONE SO FAR.PT RESTING ON HER BED AT THIS TIME.PT PROGRESSING SLOWLY TOWARDS DC GOALS.CALL LIGHT WITHIN REACH.
[2021-04-13 05:15] LABS: HEMATOCRIT 30.7 % (37.0-47.0); MCH 31.9 pg (26.0-34.0); MCHC 32.5 g/dL (28.0-37.0); RBC 3.13 mil/uL (4.20-5.00); RDW 14.1 % (10.5-14.5); WBC 7.3 thou/uL (4.0-11.0)
[2021-04-13 05:53] LABS: CALCIUM 7.9 mg/dL (8.5-10.1); CREATININE 0.9 mg/dL (0.6-1.0); POTASSIUM 3.5 mmol/L (3.5-5.1)
[2021-04-13 08:25] VITALS: BP 146/72
--- NOTE | 2021-04-13 09:51 | NUR ---
NUTRITION: SCREEN FOR LOS. INTAKE 10-25% YESTERDAY, AND ABOUT 60% AVG THE PRIOR DAY. PT C/O THRUSH TODAY AND NEW ORDER FOR NYSTATIN NOTED. WT HX UNCLEAR PT STATED SHE DID NOT KNOW IF SHE HAD A WT CHANGE AND DID NOT KNOW UBW. SHE ASKED WHAT CHARTED WT WAS (165 LB) AND THEN STATED SHE WEIGHED 183 LB ABOUT 10 DAYS AGO. PT WITH MULTIPLE CHART WT'S RECORDED IN 2020 AND MOST RANGE 155-170 LB, AND SHOW GRADUAL GAIN. PT DENIED NEED FOR SUPPLEMENTS. ADMIT WITH COMPLICATED UTI. MEDS INCLUDING LACTULOSE NOTED. BUN 6, ALBUMIN 2.1. PT ASSESSED AT MILD NUTRIITON RISK AT THIS TIME.
--- NOTE | 2021-04-13 13:12 | NUR ---
YOBANY spoke with Jignesh, [facility] Jignesh to be at [facility] soon to meet with pt to discuss out of pocket cost per day. Pt will need to pay up front prior to admission. Awaiting input from [facility] at this time. YOBANY is following to assist as needed with discharge planning.
[2021-04-13 15:48] VITALS: BP 149/85
--- NOTE | 2021-04-13 17:34 | NUR ---
Jignesh from [facility] met with patient. She has copay approx $200 a day. Patient reports she cannot afford. Faxed referral to [facility] and patient not in network. [facility] worked with patient and reports safe with dc home. She does not want people coming to her home. Her fiance works nights and patient works to days. She reports he will be avail to assist through weekend. Possible weekend dc
--- NOTE | 2021-04-13 18:42 | NUR ---
patient resting in bed comfortably, pain medication given prn. wanted to go home due to not able to pay out of pocket to [employer]. Call light within reach, will continous monitoring.
[2021-04-13 19:08] VITALS: BP 121/60
--- NOTE | 2021-04-14 03:24 | NUR ---
PT STILL REFUSING TO BE MONITORED ON TELE.EDUCATION GIVEN.BRADLEY CATH IN PLACE [facility] NO STAT LOCK PER PT'S REQUEST.PT CONT ON IVF ORDERED.PT ABLE TO MAKE HER NEEDS KNOWN.PROGRESSING SLOWLY TOWARDS DC GOALS.CALL LIGHT WITHIN REACH.
--- NOTE | 2021-04-14 10:55 | NUR ---
Assumed care of pt at 0700. Pt a&ox 3-4. Follows commands. Denies pain. Martins catheter in place. Pt refuses to keep on telemetry box. Call light within reach. Fall precautions in place. Will continue to monitor.
[2021-04-14] MEDS ORDERED: BACTRIM DS TAB1 EACH PO ×2 (13:07)
[2021-04-14] MEDS ORDERED: NYSTATIN100000 UNI SWISH&SPIT ×2 (13:13)
[2021-04-14 13:26] VITALS: BP 121/60
== END 2021-04-14 13:58 | disposition home or self-care (01) | DRG 682 ==
LOC: ER 11:47 → 4S 16:28 → EROBS 16:28 → 4S 19:59
PROVIDERS: Emergency Medicine; Hospitalist; ADMIT Internal Medicine; ATTEND Internal Medicine
DX: N17.0 Acute kidney failure with tubular necrosis (principal); E43 Unspecified severe protein-calorie malnutrition; N39.0 Urinary tract infection, site not specified; D64.9 Anemia, unspecified; N18.30 Chronic kidney disease, stage 3 unspecified; F32.9 Major depressive disorder, single episode, unspecified; D69.6 Thrombocytopenia, unspecified; I95.9 Hypotension, unspecified; S09.90XA Unspecified injury of head, initial encounter; I12.9 Hypertensive chronic kidney disease with stage 1 through stage 4 chronic kidney disease, or unspecified chronic kidney disease; E11.22 Type 2 diabetes mellitus with diabetic chronic kidney disease; F17.210 Nicotine dependence, cigarettes, uncomplicated; G89.29 Other chronic pain; M54.9 Dorsalgia, unspecified; Z20.822 Contact with and (suspected) exposure to COVID-19; Z88.8 Allergy status to other drugs, medicaments and biological substances; Z88.6 Allergy status to analgesic agent; Z68.25 Body mass index [BMI] 25.0-25.9, adult
CPT/HCPCS: 10100

== ENCOUNTER 2021-04-23 09:00 | Inpatient (IN) | payer OTHER ==
[~2021-04-23] VITALS: Ht 167.6 cm; Wt 70.8 kg
[~2021-04-23 09:00] MED LIST changes: +BACTRIM DS TAB1 EACH PO; +BENZONATATE200 MG PO; +DILAUDID 2 MG TA2 MG PO; +NYSTATIN100000 UNI SWISH&SPIT; +STOOL SOFTENER250 MG PO; +TYLENOL ARTHRI650 MG PO
[2021-04-23 09:41] LABS: URINE BILIRUBIN NEGATIVE (Negative); URINE BLOOD 2+ (Negative); URINE CLARITY CLEAR; URINE COLOR YELLOW; URINE GLUCOSE-RANDOM* NEGATIVE (Negative); URINE KETONES NEGATIVE (Negative); URINE NITRITE-REFLEX NEGATIVE (Negative); URINE PROTEIN (DIPSTICK) NEGATIVE (Negative); URINE UROBILINOGEN 0.2 E.U./dl (0.2-1.0)
[2021-04-23 09:49] LABS: URINE LEUKOCYTES-REFLEX 2+ (Negative)
[2021-04-23 10:01] LABS: SQUAMOUS 0-3 Few /LPF (0-3)
[2021-04-23 10:02] LABS: CASTS None Seen /LPF (None Seen); CRYSTALS None Seen /LPF (None Seen)
[2021-04-23 10:03] LABS: ALBUMIN 2.4 g/dL (3.4-5.0); CALCIUM 8.5 mg/dL (8.5-10.1); CREATININE 2.2 mg/dL (0.6-1.0); DIRECT BILIRUBIN 0.4 mg/dL (<0.1-0.2); POTASSIUM 4.3 mmol/L (3.5-5.1); TOTAL BILIRUBIN 0.5 mg/dL (0.2-1.0); URINE RBC 1-2 Rare /HPF (NONE SEEN); URINE WBC-REFLEX 6-15 Few /HPF (0-5); YEAST-REFLEX Present (None Seen)
[2021-04-23 10:04] LABS: BACTERIA-REFLEX 1-9 Few /HPF (None Seen)
[2021-04-23 11:01] LABS: ABSOLUTE NEUTROPHILS 7.5 thou/uL (1.4-8.2); BASOPHILS 0.5 % (0.0-2.0); EOSINOPHILS 0.7 % (0.0-3.0); HEMATOCRIT 29.7 % (37.0-47.0); HEMOGLOBIN 9.7 gm/dL (12.0-15.0); LYMPHOCYTES 9.7 % (24.0-44.0); MCH 31.2 pg (26.0-34.0); MCHC 32.6 g/dL (28.0-37.0); MCV 95.9 fL (80.0-100.0); MONOCYTES 8.9 % (1.0-8.0); PLATELET COUNT 193 thou/uL (150-400); POLYS 80.2 % (36.0-66.0); RDW 13.8 % (10.5-14.5); WBC 9.3 thou/uL (4.0-11.0)
[2021-04-23 15:46] LABS: INR 1.18; PROTIME 12.8 Seconds (10.5-12.1)
[2021-04-23 16:41] LABS: % SATURATION 17 % (20-39); IRON 49 ug/dL (50-170); TIBC 284 ug/dL (250-450)
[2021-04-23 18:16] VITALS: BP 107/39
[2021-04-23 19:07] VITALS: BP 128/51
[2021-04-23 20:00] VITALS: BP 111/61
[2021-04-23 23:34] VITALS: BP 84/40
[2021-04-24 00:06] LABS: IgG 2731 mg/dL (586-1602)
[2021-04-24 03:35] VITALS: BP 83/39
--- NOTE | 2021-04-24 04:10 | NUR ---
Assumed pt care at 1900. Pt is alert and oriented. No sign of distress noted in pt. Pt is an ER admit presented with dizziness and MICHEL. Vital signs stable. Admission assessment and data completed. Med rec completed. Scheduled meds administered to pt. Low BP noted with morning vital signs check. AIR QUALITY ENGINEER notified and order placed. Continue to monitor patient's BP. No acute event during the night. No further needs at this time.
[2021-04-24 05:16] VITALS: BP 113/53
[2021-04-24 05:23] LABS: HEMOGLOBIN 9.8 gm/dL (12.0-15.0); MCH 32.1 pg (26.0-34.0); MCHC 33.9 g/dL (28.0-37.0); MCV 94.7 fL (80.0-100.0); RBC 3.07 mil/uL (4.20-5.00); RDW 13.5 % (10.5-14.5); WBC 6.4 thou/uL (4.0-11.0)
[2021-04-24 05:38] LABS: CALCIUM 7.8 mg/dL (8.5-10.1); CREATININE 1.5 mg/dL (0.6-1.0); MAGNESIUM 1.4 mg/dL (1.8-2.4); POTASSIUM 3.9 mmol/L (3.5-5.1)
--- NOTE | 2021-04-24 08:03 | EKG ---
[address] [place] [address] ELECTROCARDIOGRAM REPORT Name: ZHANG SILVA Room #: 213-P ADM IN M.R.#: [id number] Admission: 04/23/21 Attend Phys: Juanito Small MD Discharge: Date of : 60 Report #: [id number] [facility] ED Test Date: 2021-04-23 Test Time: 09:07:22 Pat Name: ZHANG SILVA Department: Room: 213 Gender: F Awning Hanger: ESTHER : 1960 Requested By: Juanito Small Order Number: [id number] MD: Adeel De Jesus Measurements Intervals [place] Rate: 61 P: 50 [place]: 198 QRS: 23 QRSD: 104 T: 45 QT: 506 QTc: 510 Interpretive Statements Sinus rhythm Abnormal R-wave progression, early transition Prolonged QT interval Compared to ECG 04/07/2021 13:34:17 T-wave abnormality no longer present Electronically Signed On 04-24-2021 8:03:15 BRAKE OPERATOR HELPER by Adeel De Jesus [email or web address] <ELECTRONICALLY SIGNED> By: Adeel De Jesus MD, [facility] 04/24/21802 6 6 Adeel De Jesus MD, [facility] /EPI
[2021-04-24 08:08] LABS: HAV IgM AB (ANTI-HAV IgM) Negative (Negative); HEPATITIS B SURFACE AG Negative (Negative); HEPATITIS C VIRUS AB 0.6 (0.0-0.9)
[2021-04-24 10:04] VITALS: BP 114/61
[2021-04-24 11:30] LABS: BF NUCLEATED CELLS 861 /mm3; BF RBC 937 /mm3; TOTAL VOLUME 58 mL
[2021-04-24 11:31] LABS: CLARITY HAZY; COLOR YELLOW
[2021-04-24] MEDS ORDERED: FERRETTS325 MG PO ×2 (11:48)
[2021-04-24] MEDS ORDERED: PROZAC20 MG PO ×2 (11:49)
[2021-04-24] MEDS ORDERED: SPIRONOLACTONE100 M1 PO ×2 (11:50)
[2021-04-24] MEDS ORDERED: LASIX 40 MG TAB40 MG PO ×2 (11:50)
[2021-04-24] MEDS ORDERED: DICLOFENAC SOD50 M1 PO ×2 (11:51)
[2021-04-24] MEDS ORDERED: DITROPAN XL5 M1 PO ×2 (11:51)
[2021-04-24 12:12] VITALS: BP 93/38
--- NOTE | 2021-04-24 12:44 | NUR ---
I have reviewed the documentation by MORAIMA PENALOZA from 04/24/21 to 04/24/21 and I concur with it. EVAN MILIAN, PT, DPT
[2021-04-24 13:09] LABS: ANA INTERPRETATION Positive (Negative)
[2021-04-24 13:45] LABS: SOURCE ABDOMINAL
[2021-04-24 13:46] LABS: BF NEUTROPHILS 29 %
[2021-04-24 13:47] LABS: BF MACROPHAGE 36 %
[2021-04-24 14:07] LABS: CERULOPLASMIN 28.7 mg/dL (19.0-39.0)
[2021-04-24 15:47] LABS: INR 1.11
--- NOTE | 2021-04-24 15:59 | NUR ---
PATIENT ADMITTED FOR HYPONATREMIA, MICHEL. CHART REVIEWED AND DISCUSSED WITH CARE TEAM. CM MET WITH PT THIS DAY. CM ROLE INTRODUCED. PATIENT LIVES AT HOME WITH FIANCE. PT INDICATED FIANCE WORKS NIGHTS. 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 PT DENIES HAVING USED HH/SNF/REHAB IN THE PAST. PT REPORTS 2 STEPS INSIDE THE HOME AND 2 OUTSIDE THE HOME. PT REPORT NO CONCERNS WITH DC HOME ONCE MEDICALLY STABLE. THERAPY RECOMMEND HH OR SNF ONCE MEDICALLY STABLE TO DC. PT AGREEABLE TO [facility] DURING ASSESSMENT. CM TO VISIT WITH PT REGARDING SNF OPTIONS. [facility] CM CALLED [facility] AND INFORMED ALL [facility] ON DIVER[facility] AND NOT ACCEPTING PTS AT THIS TIME. PHYSICIAN INDICATED PT MAY BE MEDICALLY STABLE TO DC TOMORROW. CM ALSO LM FOR [facility] REQUESTING BED AVAILABITY WITH NO RETURN CALL AT THIS TIME. CM FOLLOWING FOR DC PLANNING.
[2021-04-24 16:36] VITALS: BP 112/54
[2021-04-24 18:59] VITALS: BP 122/47
--- NOTE | 2021-04-24 19:35 | NUR ---
PT IS AXOX4, PLEASANT; VSS, AFEBRILE, MS. PT C/O PAIN IN L HIP, HAS WEAKNESS WITH MOBILITY. CHRONIC BRADLEY IN PLACE. PT HAD PARACENTESIS IN AM, 1.5L DRAWN OFF. AWAITING LAB RESULTS. GI CONSULTED. UROLOGY CONSULTED. POC IS TO CONTINUE TO MONITOR BP, ABX THERAPY. ASSESS UO. CASE MGMT DISCUSSED PLANS D/C TO FACILITY FOR ACUTE REHAB. UROLOGY TO REPLACE CHRONIC BRADLEY 04/25/21. FALL PRECAUTIONS IN PLACE. NO CONCERNS AT THIS TIME.
[2021-04-25] VITALS (7 sets, daily range): BP systolic 100–109; BP diastolic 47–59
[2021-04-25 03:52] LABS: HEMATOCRIT 31.4 % (37.0-47.0); HEMOGLOBIN 10.2 gm/dL (12.0-15.0); MCH 31.6 pg (26.0-34.0); MCHC 32.6 g/dL (28.0-37.0); MCV 96.8 fL (80.0-100.0); RBC 3.24 mil/uL (4.20-5.00); RDW 13.8 % (10.5-14.5); WBC 5.4 thou/uL (4.0-11.0)
--- NOTE | 2021-04-25 04:01 | NUR ---
Assumed pt care at 1900. Pt is alert and oriented. No sign of distress noted in pt. Vebalizes a headache during the night. Fall precaution in place. Assessment completed and documented. Scheduled meds admninistered to pt. Pt is stable. No acute event during the night. Continue to monitor. No further needs at this time.
[2021-04-25 04:06] LABS: INR 1.12; PROTIME 12.1 Seconds (10.5-12.1)
[2021-04-25 04:51] LABS: CALCIUM 8.5 mg/dL (8.5-10.1); CREATININE 1.3 mg/dL (0.6-1.0); MAGNESIUM 1.9 mg/dL (1.8-2.4)
--- NOTE | 2021-04-25 07:46 | HC ---
[facility] [place] [address] CONSULTATION Name: ZHANG SILVA Room #: 213-P ADM IN M.R.#: [id number] Admission: 04/23/21 Attend Phys: Juanito Small MD Discharge: Date of : 60 Report #: [id number] THIS REPORT FOR: cc: Vicente Hawkins MD, Stanley P. MD Barry, Joseph W. MD ~ DATE OF SERVICE: 04/24/2021 INFECTIOUS DISEASE CONSULTATION ATTENDING PHYSICIAN: Dr. Small. REASON FOR EVALUATION: Suspected complicated urinary tract infection. HISTORY OF PRESENT ILLNESS: This is a 60-year-old woman known to myself, who was just discharged recently from the hospital, had been diagnosed with a complicated urinary tract infection. She has ongoing severe back pain. She was very weak. She states she could not get out of bed in part because of pelvic pain and weakness. In addition to that, was quite lightheaded, did note increasing abdominal distention. It is notable that she has a history of cirrhosis with ascites. She was evaluated. Coronavirus testing was negative. Chest x-ray showed no evidence of pulmonary infiltrate or pleural effusion. Urinalysis did show moderate pyuria, 6-15 white cells, few bacteria, although no yeast were present. Found to have a creatinine of 2.2 with a sodium of 123. Liver functions were remarkable for an alkaline phosphatase of 194. Lactic acid 1.2. Repeat with hydration, sodium 132, potassium 1.5. Blood cultures collected at time of admission are negative thus far. Urine culture was sterile. She underwent paracentesis, noted 861 nucleated cells. Awaiting the differential. It is not clear if she had significant fevers. She noted she had a depressed p.o. intake and appetite. She primarily complains of the pelvic pain, which she attributes to piriformis syndrome. She was empirically started on antibiotics with ceftriaxone. ALLERGIES: CODEINE, HYDROCODONE, NAPROXEN, TRAMADOL. CURRENT MEDICATIONS: Include lactulose, trazodone, hydromorphone, ceftriaxone. PAST MEDICAL HISTORY: History as noted above, diabetes mellitus, diet controlled; history of depression, anxiety, chronic pain, attributable to piriformis syndrome. Also, lumbar stenosis, chronic neurogenic bladder with indwelling Martins catheter for an extended period of time, hypertension, recurrent UTIs. FAMILY HISTORY: Available in chart. REVIEW OF SYSTEMS: Otherwise, unremarkable. [address] [address] CONSULTATION Name: ZHNAG SILVA Room #: 213-P [facility] IN ..#: [id number] Admission: 04/23/21 Attend Phys: Juanito Small MD Discharge: Date of : 60 Report #: [id number] PHYSICAL EXAMINATION: GENERAL: She is alert, cooperative, moderate distress. She is generally lucid. She is pale and chronically ill appearing. VITAL SIGNS: Temperature 98, pulse 67, respirations 18, blood pressure 93/38. SKIN: Warm, dry, no rashes. HEENT: Normocephalic. Extraocular muscles intact. NECK: Supple. LUNGS: Diminished breath sounds, crackles at the bases. ABDOMEN: Distended. She has somewhat tender lower quadrants, right greater than left. No overt peritoneal signs. GENITOURINARY AND RECTAL: Deferred. LABORATORY DATA: EDYTA was positive. IgG elevated at 2731, upper limits of normal being 1602. Ascitic fluid, yellow, hazy, 937 red cells, 861 nucleated cells. The procedure report removed 1250 mL. Urine cultures sterile thus far. Blood cultures unremarkable. Electrolytes: Sodium 132, potassium 3.9, chloride 99, bicarbonate 22, anion gap of 11, BUN and creatinine 17 and 1.5. CBC: White count of 6.4, H and H 9.8 and 29.0, platelets of 229. Doppler changes consistent with cirrhosis and moderate ascites, splenomegaly, previous cholecystectomy. Ferritin 121. Sed rate of 63. Lactic acid 1.2. ASSESSMENT AND PLAN: Suspected complicated urinary tract infection, longstanding indwelling Martins catheter, recently has been hospitalized with absence of any growth, would be concerned about adverse drug effect to the trimethoprim sulfamethoxazole may have led to renal insufficiency and perhaps hyponatremia as well. I think underlying issue in addition to the cirrhosis, cannot entirely exclude spontaneous bacterial peritonitis. She has chronic pain syndrome, which makes it difficult for her to be mobile at this point. We will discuss with Dr. Small. She requests MRI of her pelvis, which she has been trying to get for a year. In spite of all of her efforts, various healthcare professional, she has been unable to get any relief. <ELECTRONICALLY SIGNED> By: Suleiman Montano MD 04/25/21 0746 [id number] Suleiman Montano MD /nt
[2021-04-25 10:16] LABS: ALBUMIN 2.4 g/dL (3.4-5.0); DIRECT BILIRUBIN 0.2 mg/dL (<0.1-0.2); TOTAL BILIRUBIN 0.2 mg/dL (0.2-1.0); TOTAL PROTEIN 7.5 g/dL (6.4-8.2)
--- NOTE | 2021-04-25 10:50 | NUR ---
OLD BRADLEY REMOVED AND NEW BRADLEY PLACED PER URO ORDER.
[2021-04-25] MEDS ORDERED: CEFDINIR300 MG PO ×2 (14:03)
--- NOTE | 2021-04-25 15:54 | NUR ---
ASSUMED CARE OF PATIENT AT 0700. PATIENT A&OX4, ON RA, NO TELE. ONE DOSE PO DILUADID GIVEN FOR PAIN WITH PATIENT SLEEPING. BRADLEY CATHETER REPLACED PER ORDER. PATIENT CHANGED FROM IV ANTIBOTICS TO PO CEFDINIR FOR DC HOME. PATIENT WOULD LIKE HOME HEALTH AND CM IS WORKING ON THAT AT THIS TIME. PATIENT PROGRESSED TOWARD POC.
--- NOTE | 2021-04-25 16:35 | NUR ---
ONLY ONE HOME HEALTH AGENCY LISTED ON [employer] WEBSITE WHICH IS [facility]. CM CALLED [facility] AND WAS INFORMED BY CALLED THEY ONLY PROVIDED SERVICE TO PEDIATRICS. CM SPOKE TO COLLEAGE WHO INDICATED [facility] MAY TAKE [employer]. CM CALLED [facility] AND SPOKE WITH BONNIE. HE INFORMED THEY DO ACEEPT. DC ORDERS AND SUMMARY FAXED TO [place] AT [phone]. CM AWAITING ACEPTANCE AT THIS ITME. IF UNABLE TO ACCEPT, PT WILL DC HOME AND CM WILL FOLLOW UP WITH HH IN AM. CM FOLLOWING.
[2021-04-26 16:05] LABS: SOURCE ABDOMINAL
[2021-04-29 11:06] LABS: BODY FLUID ALBUMIN 1.5 g/dL (Not Estab.); BODY FLUID AMYLASE 44 U/L (()); BODY FLUID GLUCOSE 89 mg/dL (()); BODY FLUID LDH 77 IU/L (()); BODY FLUID PROTEIN 3.5 g/dL (())
--- NOTE | 2021-05-04 11:08 | PATH ---
[facility] [place] [address] PATHOLOGY RPT PROCEDURE Name: ZHANG SILVA Room #: 213-P DIS IN M.R.#: [id number] Admission: 04/23/21 Date of : 60 Discharge: 04/25/21 Report #: [id number] Path Case #: [id number] Note [facility] Accession Number: [id number] TESTS RESULT FLAG UNITS REF RANGE LAB Clinician Provided Cytology Information No. of containers..01 Other (Miscellaneous) Source: ABDOMINAL FLUID DIAGNOSIS: 02 ABDOMINAL FLUID NEGATIVE FOR MALIGNANT CELLS. REACTIVE MESOTHELIAL CELLS ARE PRESENT. THIS INTERPRETATION INCLUDES EVALUATION OF A CELL BLOCK. Signed out by: 02 Alberto Ramirez MD, Pathologist NPI- [id number] Performed by: 01 Sandy Matta, Template Worker ([facility]) Gross description: 01 27ML, YELLOW, CLEAR /LCS 04/24/2021 1608 Local FLAG LEGEND: L-Low Normal,H-High Normal,LL-Alert Low,HH-Alert High <-Panic Low,>-Panic High,A-Abnormal,AA-Critical Abnormal Performed at: [address] [place] [address] Ino Whipple MD, [address] [place] [id number] Alberto Ramirez MD, Specimen Comment: A courtesy copy of this report has been sent to [phone], [phone] Specimen Comment: [id number] Specimen Comment: Report sent to / DR RODRIGUEZ Specimen Comment: A duplicate report has been generated due to demographic updates. Performed at: [address], [place], [place] [id number] MD Ino Whipple MD Phone: [phone]
== END 2021-04-25 18:01 | disposition home health service (06) | DRG 432 ==
LOC: ER 09:00 → EROBS 11:35 → 2N 11:35
PROVIDERS: Nurse Practitioner; Student in an Organized Health Care Education/Training Program; ADMIT Internal Medicine; ATTEND Internal Medicine
PROC: 0W9G3ZZ Drainage of Peritoneal Cavity, Percutaneous Approach (ICD-10-PCS; principal; 2021-04-24)
DX: K74.60 Unspecified cirrhosis of liver (principal); N17.0 Acute kidney failure with tubular necrosis; E43 Unspecified severe protein-calorie malnutrition; R18.8 Other ascites; E87.1 Hypo-osmolality and hyponatremia; N39.0 Urinary tract infection, site not specified; K72.90 Hepatic failure, unspecified without coma; Z20.822 Contact with and (suspected) exposure to COVID-19; F32.9 Major depressive disorder, single episode, unspecified; F41.9 Anxiety disorder, unspecified; N18.9 Chronic kidney disease, unspecified; D64.9 Anemia, unspecified; I12.9 Hypertensive chronic kidney disease with stage 1 through stage 4 chronic kidney disease, or unspecified chronic kidney disease; E11.22 Type 2 diabetes mellitus with diabetic chronic kidney disease; R33.9 Retention of urine, unspecified; F17.210 Nicotine dependence, cigarettes, uncomplicated; E86.0 Dehydration; N31.9 Neuromuscular dysfunction of bladder, unspecified; G89.4 Chronic pain syndrome; E86.9 Volume depletion, unspecified; Z88.6 Allergy status to analgesic agent; Z88.8 Allergy status to other drugs, medicaments and biological substances; Z86.14 Personal history of Methicillin resistant Staphylococcus aureus infection; Z68.25 Body mass index [BMI] 25.0-25.9, adult
CPT/HCPCS: 10194